=== PATIENT | male | born 1950 | race Caucasian/White ===

== ENCOUNTER 2020-01-08 00:21 | Inpatient (IN) ==
[2020-01-08] MEDS ORDERED: methylPREDNISolone SOD SUCC 125 MG/2 ML VIAL IV ONE (00:33)
[2020-01-08] MEDS ORDERED: ALBUTEROL SULFATE 5 MG/ML NEB SOLUTION BOTTLE NEB ONE (00:33)
[2020-01-08] MEDS ORDERED: cefTRIAXone 1 GM VIAL IV ONE (00:50)
[2020-01-08] MEDS ORDERED: AZITHROMYCIN 500 MG in DEXTROSE 5% IN WATER 250 ML IV ONE (00:50)
--- NOTE | 2020-01-08 00:54 | Emergency Department Note ---
SOB HPI General Chief Complaint: Shortness of Breath/Dyspnea Stated Complaint: shortness of breath Time Seen by Provider: 01/08/20 00:43 Source: patient Mode of arrival: ambulatory Limitations: no limitations History of Present Illness HPI Narrative: The patient presents with several hours of Dyspnea. He has a history of emphysema. He has had a slight increase in his cough since yesterday. He denies fever. He denies vomiting. He denies chest pain. The patient is normally on oxygen. He denies calf swelling. Related Data Home Medications Medication Instructions Recorded Confirmed cetirizine 10 mg tablet 10 mg PO QDAY tab 09/01/17 12/06/19 ibuprofen 200 mg tablet 400 mg PO TID tab 09/01/17 12/06/19 [id number]-[id number]-[id number] 1 tab PO QDAY 09/01/17 12/06/19 formoterol fumarate 20 mcg/2 mL 2 ml INHALATION Q12H 12/01/17 12/06/19 solution for nebulization albuterol sulfate 2 puff INH PRN PRN 08/23/18 12/06/19 cholecalciferol (vitamin D3) 400 unit PO DAILY 08/23/18 12/06/19 hydrocortisone 2.5 % topical cream 1 applic TOPICAL QDAY PRN g 08/30/18 12/06/19 budesonide 0.5 mg NEB Q12 09/27/18 12/06/19 epinephrine 0.15 mg IM PRN PRN 09/27/18 12/06/19 tiotropium bromide 2.5 2 puff INHALATION QDAY 11/25/19 12/06/19 mcg/actuation mist for inhalation Previous Rx's Medication Instructions Recorded albuterol sulfate 2.5 mg IH Q4-6HP PRN #30 ml 03/27/19 tamsulosin 0.4 mg capsule 0.4 mg PO QDAY #30 cap 06/20/19 hydrocodone 5 mg-acetaminophen 325 1 tab PO QHS PRN #30 tab 11/25/19 mg tablet tramadol 50 mg tablet 100 mg PO TID #180 tab 11/25/19 Allergies Allergy/AdvReac Type Severity Reaction Status Date / Time venom-honey bee Allergy Severe Anaphylaxis Verified 12/06/19 13:41 ipratropium [From Combivent] Allergy Unknown Bladder Verified 12/06/19 13:41 problem Megestrol Allergy Unknown Rash Verified 12/06/19 13:41 asparagus AdvReac Mild Hives Verified 12/06/19 13:41 cauliflower AdvReac Mild Hives Verified 12/06/19 13:41 oxymetazoline AdvReac Mild Shakiness Verified 12/06/19 13:41 [From Afrin (oxymetazoline)] sunshine AdvReac Severe Other Uncoded 12/06/19 13:41 cold AdvReac Intermediate Other Uncoded 12/06/19 13:41 broccoli AdvReac Mild Hives Uncoded 12/06/19 13:41 cabbage AdvReac Mild Hives Uncoded 12/06/19 13:41 heat AdvReac Mild Fainting Uncoded 12/06/19 13:41 Review of Systems ROS ROS Narrative: Narrative: All systems ED: reviewed and negative except as stated. [facility] Narrative Patient History Narrative: Narrative: Medical/Surgical/Family History All Active Problems (Updated 01/08/20 @ 02:32 by Ramana Guzman MD) Acute respiratory distress (Acute) Adverse reaction to drug (Acute) Pedal edema (Acute) Acute exacerbation of chronic obstructive airways disease (Acute) Adenocarcinoma of prostate (Acute) History of tobacco use (Chronic) Raynauds disease (Chronic ~1991) Chronic pain (Chronic ~1991) Emphysema of lung (Chronic ~2015) COPD (chronic obstructive pulmonary disease) (Chronic ~2015) Joint pain (Chronic ~1991) Muscle pain (Chronic ~1991) Medical History (Updated 01/08/20 @ 02:32 by Ramana Guzman MD) Chronic pain (Chronic ~1991) COPD (chronic obstructive pulmonary disease) (Chronic ~2015) Emphysema of lung (Chronic ~2015) History of tobacco use (Chronic) Joint pain (Chronic ~1991) Muscle pain (Chronic ~1991) Raynauds disease (Chronic ~1991) Surgical History H/O colonoscopy (Chronic) 2014 H/O neck surgery (Chronic) x3 H/O shoulder surgery (Chronic) x2 History of resection of rib (Chronic) History of surgery (Chronic) Hip bone used for neck surgery History of thoracic surgery (Chronic) Family History Brother Arthritis Prostate cancer Sister Arthritis Mother Arthritis Grandmother Arthritis Maternal Stroke Paternal Social History Smoking Status: Former smoker Alcohol Intake Frequency: 0-2 drinks per day Substance Use: does not use Exam Narrative Narrative: Narrative: General Limitations: no limitations General appearance: Present alert and in distress (Moderate respiratory); Absent in no apparent distress and obtunded Head Head: Present atraumatic and normal inspection Eye Eye: Present normal appearance Neck Neck: Present normal inspection, full ROM and trachea midline Chest Chest: Present normal inspection and symmetric chest wall rise Respiratory Respiratory: Present respiratory distress (Moderate), wheezes, accessory muscle use, prolonged expiratory phase and decreased breath sounds; Absent normal lung sounds bilaterally Cardiovascular Cardiovascular: Present normal rhythm and tachycardia Adbominal Abdominal: Present soft; Absent distention and tenderness Extremities Extremities: Present normal inspection and full ROM; Absent calf tenderness Back Back: Present full ROM Neurological Neurological: Present alert and oriented X3 Psychiatric Psychiatric: Present normal affect and anxious; Absent normal mood Skin Skin: Present warm (WNL) and dry Course Reevaluation(s) Reevaluation #1: The patient is doing markedly better. He seems to be in no respiratory distress at all now. Time: 02:31 Reevaluation #2: I spoke to the hospitalist, Dr. Escalante. He agreed to admit this patient and asked me to place holding orders Time: 02:40 Vital Signs Vital signs: Vital Signs Temperature 97.1 F 01/08/20 00:23 Pulse Rate 104 H 01/08/20 00:23 Respiratory Rate 24 H 01/08/20 00:23 Blood Pressure 183/92 01/08/20 00:23 Pulse Oximetry (%) 95 01/08/20 00:23 Temperature 97.1 F 01/08/20 00:23 Pulse Rate 129 H 01/08/20 01:50 Respiratory Rate 18 01/08/20 01:49 Blood Pressure 140/91 01/08/20 01:46 Pulse Oximetry (%) 97 01/08/20 01:50 [facility] MDM Narrative Medical decision making narrative: Narrative: The patient presents with dyspnea. This is most likely COPD exacerbation. Viral infection including coronavirus is considered. Community-acquired pneumonia is considered. I doubt pulmonary embolism as COPD exacerbation is a much more likely diagnosis and patient has no significant risk factors for PE. ACS is considered but thought to be less likely. We will obtain a troponin and EKG. Plan to place him on a BiPAP and do a continuous neb. We will give Solu-Medrol. We will obtain appropriate labs including lactate and cultures. Once blood cultures have been obtained, we will give Rocephin and Zithromax. I suspect patient will most likely need to be admitted to the hospital. Lab Data Lab results reviewed: Yes I reviewed the patient's lab results. Result diagrams: 01/08/20 00:48 01/08/20 00:48 Labs: Lab Results 01/08/20 01/08/20 01/08/20 Range/Units 00:48 00:48 00:48 WBC 7.7 (4.5-11.0) K/mcL RBC 3.81 L (4.50-5.90) M/mcL Hgb 11.8 L (13.5-16.5) g/dL Hct 34.8 L (41.0-55.0) % MCV 91.3 (80.0-100.0) fL MCH 31.0 (26.0-34.0) pg MCHC 33.9 (31.0-36.0) g/dL RDW 12.7 (11.5-14.5) % Plt Count 184 (140-440) K/mcL MPV 10.3 (7.4-10.4) fL Neut % (Auto) 50.4 (38.0-78.0) % Lymph % (Auto) 33.1 (15.0-49.0) % [place] % (Auto) 11.3 (1.0-12.0) % Eos % (Auto) 4.4 (0.0-7.0) % Baso % (Auto) 0.8 (0.0-2.0) % Lymph # (Auto) 2.55 (1.50-4.80) K/mcL [place] # (Auto) 0.87 (0.10-0.90) K/mcL Eos # (Auto) 0.34 (0.00-0.70) K/mcL Baso # (Auto) 0.06 (0.00-0.20) K/mcL Absolute Neutrophils 3.89 (1.80-8.00) K/mcL VBG Lactic Acid (0.5-2.0) mmol/L Sodium 135 (133-145) mmol/L Potassium 4.1 (3.3-5.1) mmol/L Chloride 99 (96-108) mmol/L Carbon Dioxide 26 (22-30) mmol/L Anion Gap 10.0 (8.0-16.0) BUN 16 (8-23) mg/dL Creatinine 1.1 (0.7-1.2) mg/dL GFR Calculation 68 Glucose 131 H (70-105) mg/dL Calcium 9.1 (8.6-10.4) mg/dL Total Bilirubin < 0.2 (0.1-1.0) mg/dL AST 25 (<40) U/L ALT 18 (<40) U/L Alkaline Phosphatase 74 (39-117) U/L Troponin T < 0.01 (<0.03) ng/mL Total Protein 6.8 (5.9-8.4) gm/dL Albumin 4.1 (3.2-5.2) gm/dL Globulin 2.7 (2.2-3.7) gm/dL Albumin/Globulin Ratio 1.5 (1.0-2.3) 01/08/20 Range/Units 00:48 WBC (4.5-11.0) K/mcL RBC (4.50-5.90) M/mcL Hgb (13.5-16.5) g/dL Hct (41.0-55.0) % MCV (80.0-100.0) fL MCH (26.0-34.0) pg MCHC (31.0-36.0) g/dL RDW (11.5-14.5) % Plt Count (140-440) K/mcL MPV (7.4-10.4) fL Neut % (Auto) (38.0-78.0) % Lymph % (Auto) (15.0-49.0) % [place] % (Auto) (1.0-12.0) % Eos % (Auto) (0.0-7.0) % Baso % (Auto) (0.0-2.0) % Lymph # (Auto) (1.50-4.80) K/mcL [place] # (Auto) (0.10-0.90) K/mcL Eos # (Auto) (0.00-0.70) K/mcL Baso # (Auto) (0.00-0.20) K/mcL Absolute Neutrophils (1.80-8.00) K/mcL VBG Lactic Acid 0.6 (0.5-2.0) mmol/L Sodium (133-145) mmol/L Potassium (3.3-5.1) mmol/L Chloride (96-108) mmol/L Carbon Dioxide (22-30) mmol/L Anion Gap (8.0-16.0) BUN (8-23) mg/dL Creatinine (0.7-1.2) mg/dL GFR Calculation Glucose (70-105) mg/dL Calcium (8.6-10.4) mg/dL Total Bilirubin (0.1-1.0) mg/dL AST (<40) U/L ALT (<40) U/L Alkaline Phosphatase (39-117) U/L Troponin T (<0.03) ng/mL Total Protein (5.9-8.4) gm/dL Albumin (3.2-5.2) gm/dL Globulin (2.2-3.7) gm/dL Albumin/Globulin Ratio (1.0-2.3) Radiology Data Radiology results reviewed: Yes I reviewed the patient's radiology results. Radiology results narrative: Per my interpretation of the portable chest x-ray, there is hyperexpansion of the lungs but no infiltrate appreciated EKG Data EKG #1: EKG attestation: Yes I reviewed and interpreted this EKG. and Yes There are no EKG findings of acute coronary syndrome EKG results narrative: Sinus, rate 126, normal axis, normal intervals, narrow complex QRS, no acute ST or T changes worrisome for acute infarction CC TIME Critical Care Time Critical Care Time: Yes Total Critical Care Time: 45 Discharge Plan Patient/Caregiver Discharge Instructions Pt seen by PUBLIC HEALTH INFORMATICIAN/PA only: No Clinical Impression: COPD (chronic obstructive pulmonary disease), Acute respiratory distress Patient Disposition: Xfer As Outpt/Obs ([facility]) Condition: Undetermined Follow up with: Amalia Bucio PA-C [Primary Care Provider] - Prescriptions: No Action tamsulosin 0.4 mg capsule 0.4 mg PO QDAY Qty: 30 RF: 6 ibuprofen 200 mg tablet 400 mg PO TID RF: 0 lijwhvjsflsm-jefdlspq-acmcnt 1 tab PO QDAY RF: 0 cetirizine [Zyrtec] 10 mg tablet 10 mg PO QDAY RF: 0 formoterol fumarate [Perforomist] 20 mcg/2 mL solution for nebulization 2 ml INHALATION Q12H RF: 0 hydrocortisone 2.5 % cream 1 applic TOPICAL QDAY PRN (Reason: eczema) RF: 0 Spiriva Respimat 2.5 mcg/actuation mist 2 puff INHALATION QDAY RF: 0 hydrocodone-acetaminophen 5-325 mg tablet 1 tab PO QHS PRN (Reason: pain) Qty: 30 RF: 0 tramadol 50 mg tablet 100 mg PO TID Qty: 180 RF: 0 albuterol sulfate 1 PUFF inhaler 2 puff INH PRN PRN (Reason: asthma) RF: 0 cholecalciferol (vitamin D3) 4,000 UNIT capsule 400 unit PO DAILY RF: 0 epinephrine 0.15 MG/0.3 ML auto-injector 0.15 mg IM PRN PRN (Reason: Anaphylaxis) RF: 0 budesonide 0.5 MG/2 ML suspension for nebulization 0.5 mg NEB Q12 RF: 0 albuterol sulfate 2.5 MG/3 ML solution for nebulization 2.5 mg IH Q4-6HP PRN (Reason: Wheezing) Qty: 30 RF: 0
[2020-01-08 01:40] LABS: Basophils # (Auto) 0.06 K/mcL (0.00-0.20); Basophils % (Auto) 0.8 % (0.0-2.0); Eosinophils # (Auto) 0.34 K/mcL (0.00-0.70); Eosinophils % (Auto) 4.4 % (0.0-7.0); Hematocrit 34.8 % (41.0-55.0); Hemoglobin 11.8 g/dL (13.5-16.5); Lymphocytes # (Auto) 2.55 K/mcL (1.50-4.80); Lymphocytes % (Auto) 33.1 % (15.0-49.0); Mean Cell Volume 91.3 fL (80.0-100.0); Mean Corpuscular HGB Conc 33.9 g/dL (31.0-36.0); Mean Platelet Volume 10.3 fL (7.4-10.4); Monocytes # (Auto) 0.87 K/mcL (0.10-0.90); Monocytes % (Auto) 11.3 % (1.0-12.0); Neutrophils % (Auto) 50.4 % (38.0-78.0); Platelet Count 184 K/mcL (140-440); RBC 3.81 M/mcL (4.50-5.90); Red Cell Distribution Width 12.7 % (11.5-14.5); WBC 7.7 K/mcL (4.5-11.0)
[2020-01-08 02:05] LABS: ALT/SGPT 18 U/L (<40); AST/SGOT 25 U/L (<40); Albumin 4.1 gm/dL (3.2-5.2); Albumin/Globulin Ratio 1.5 (1.0-2.3); Alkaline Phosphatase 74 U/L (39-117); Bilirubin,Total < 0.2 mg/dL (0.1-1.0); Blood Urea Nitrogen 16 mg/dL (8-23); Calcium 9.1 mg/dL (8.6-10.4); Carbon Dioxide 26 mmol/L (22-30); Chloride 99 mmol/L (96-108); Globulin 2.7 gm/dL (2.2-3.7); Glomerular Filtration Rate 68; Glucose 131 mg/dL (70-105)
[2020-01-08] MEDS: 0.9 % SODIUM CHLORIDE 1,000 ML IV SCH ×2 (05:19→18:11)
--- NOTE | 2020-01-08 08:06 | XRay Report ---
CLINICAL INFORMATION: SOB COMPARISON: 03/27/2019 FINDINGS: Heart size, mediastinum and pulmonary vessels are normal. COPD changes are stable. No infiltrates or new pulmonary abnormalities. No effusions. IMPRESSION: COPD. no acute disease Interpreted and Authenticated by: Rick Amin 01/08/20
[2020-01-08] MEDS: traMADol 50 MG TABLET PO PRN ×2 (08:12→12:53)
[2020-01-08] MEDS ORDERED: MAGNESIUM SULFATE 2 GM/50 ML BAG IV PRN (08:45)
[2020-01-08] MEDS ORDERED: MELATONIN 3 MG TABLET PO PRN (08:45)
[2020-01-08] MEDS ORDERED: POTASSIUM CHLORIDE 40 MEQ in DEXTROSE 5% IN WATER 500 ML IV PRN (08:45)
[2020-01-08] MEDS ORDERED: ONDANSETRON 4 MG ODT TABLET SL PRN (08:45)
[2020-01-08] MEDS ORDERED: ONDANSETRON 4 MG/2 ML VIAL IV PRN (08:45)
[2020-01-08] MEDS ORDERED: ACETAMINOPHEN 325 MG TABLET PO PRN (08:45)
[2020-01-08] MEDS ORDERED: POLYETHYLENE GLYCOL 3350 17 GM PACKET PO PRN (08:45)
[2020-01-08] MEDS ORDERED: ACETAMINOPHEN 650 MG/65 ML BOTTLE IV PRN (08:45)
[2020-01-08] MEDS ORDERED: BISACODYL 10 MG SUPP.RECT PR PRN (08:45)
[2020-01-08] MEDS ORDERED: HYDROCORTISONE CRM 2.5% TUBE 30GM TOPICAL PRN (08:49)
--- NOTE | 2020-01-08 08:55 | Internal Med History&Physical ---
HPI History of Present Illness Patient information: Note initiated : 01/08/20 at 8:55 am Service Date, if different from initiated Date: [] Patient: Dimitry May a 69 y/o M admitted on 01/08/20 for shortness of breath. Chief Complaint: Shortness of breath and unable to talk History of present illness: Mr. May is a 69 year old M with a known history of COPD/DJD who presents to the ER following rapid deterioration in his respiratory status with increasing shortness of breath weakness that started late evening. Symptoms progressed to the point that he was unable to catch breath even at rest. He eventually presents to the ER. Initial work-up was consistent with hypercapnic respiratory failure with ABG pH 7.3 and increased work of breathing unable to talk. Patient was probably started on noninvasive ventilation along with bronchodilators and IV steroids. Subsequently hospital service was consulted At the time of my evaluation patient is fairly anxious, dyspneic and sitting up in bed. He denies recent fever. Lives with his . Denies yellow productive sputum but endorses to increasing dyspnea/cough/orthopnea. Denies rash/headache/diarrhea or dysuria Denies exposure to smoke/sick contacts Review of systems 10 point review system was performed and is negative except for ones discussed above PFSH PFSH All Active Problems (Updated 01/08/20 @ 02:32 by Ramana Guzman MD) Acute respiratory distress (Acute) Adverse reaction to drug (Acute) Pedal edema (Acute) Acute exacerbation of chronic obstructive airways disease (Acute) Adenocarcinoma of prostate (Acute) History of tobacco use (Chronic) Raynauds disease (Chronic ~1991) Chronic pain (Chronic ~1991) Emphysema of lung (Chronic ~2015) COPD (chronic obstructive pulmonary disease) (Chronic ~2015) Joint pain (Chronic ~1991) Muscle pain (Chronic ~1991) Medical History (Updated 01/08/20 @ 02:32 by Ramana Guzman MD) Chronic pain (Chronic ~1991) COPD (chronic obstructive pulmonary disease) (Chronic ~2015) Emphysema of lung (Chronic ~2015) History of tobacco use (Chronic) Joint pain (Chronic ~1991) Muscle pain (Chronic ~1991) Raynauds disease (Chronic ~1991) Surgical History H/O colonoscopy (Chronic) 2014 H/O neck surgery (Chronic) x3 H/O shoulder surgery (Chronic) x2 History of resection of rib (Chronic) History of surgery (Chronic) Hip bone used for neck surgery History of thoracic surgery (Chronic) Family History Brother Arthritis Prostate cancer Sister Arthritis Mother Arthritis Grandmother Arthritis Maternal Stroke Paternal Social History marital status: occupational status: disabled smoking status: Former smoker alcohol intake frequency: 0-2 drinks per day substance use type: does not use MEDS/ALLERGIES Home Medications and Allergies Home Medications Medication Instructions Recorded Confirmed Type cetirizine 10 mg tablet 10 mg PO QDAY tab 09/01/17 01/08/20 History ibuprofen 200 mg tablet 400 mg PO TID tab 09/01/17 01/08/20 History lpzichluziqh-heqzzqgn-ezxfcg 1 tab PO QDAY 09/01/17 01/08/20 History formoterol fumarate 20 mcg/2 mL 2 ml INHALATION Q12H 12/01/17 01/08/20 History solution for nebulization albuterol sulfate 2 puff INH PRN PRN 08/23/18 01/08/20 History cholecalciferol (vitamin D3) 400 unit PO DAILY 08/23/18 01/08/20 History hydrocortisone 2.5 % topical cream 1 applic TOPICAL QDAY PRN g 08/30/18 01/08/20 History budesonide 0.5 mg NEB Q12 09/27/18 01/08/20 History epinephrine 0.15 mg IM PRN PRN 09/27/18 01/08/20 History albuterol sulfate 2.5 mg IH Q4-6HP PRN #30 ml 03/27/19 01/08/20 Rx tamsulosin 0.4 mg capsule 0.4 mg PO QDAY #30 cap 06/20/19 01/08/20 Rx hydrocodone 5 mg-acetaminophen 325 1 tab PO QHS PRN #30 tab 11/25/19 01/08/20 Rx mg tablet tiotropium bromide 2.5 2 puff INHALATION QDAY 11/25/19 01/08/20 History mcg/actuation mist for inhalation tramadol 50 mg tablet 100 mg PO TID #180 tab 11/25/19 01/08/20 Rx guaifenesin [Mucinex] 600 mg PO BID 01/08/20 01/08/20 History melatonin 3 mg PO HS PRN 01/08/20 01/08/20 History Allergies Allergy/AdvReac Type Severity Reaction Status Date / Time venom-honey bee Allergy Severe Anaphylaxis Verified 12/06/19 13:41 Megestrol Allergy Mild Rash Verified 01/08/20 07:36 asparagus AdvReac Mild Hives Verified 12/06/19 13:41 cauliflower AdvReac Mild Hives Verified 12/06/19 13:41 ipratropium [From Combivent] AdvReac Mild Bladder Verified 01/08/20 07:36 problem oxymetazoline AdvReac Mild Shakiness Verified 12/06/19 13:41 [From Afrin (oxymetazoline)] broccoli AdvReac Mild Hives Uncoded 12/06/19 13:41 cabbage AdvReac Mild Hives Uncoded 12/06/19 13:41 EXAM Constitutional Vitals: Temp Pulse Resp BP Pulse Ox 98.0 F 110 H 18 155/85 97 01/08/20 08:17 01/08/20 08:17 01/08/20 05:27 01/08/20 08:17 01/08/20 08:17 Extremely anxious/labored tripoding Head normocephalic Oral cavity moist No ear nose discharge Eye movement symmetrical Neck supple no lymphadenopathy S1-S2 tachycardia Labored rapid shallow breathing Nondistended nontender abdomen Lower extremity no cyanosis clubbing or joint swelling Skin no suspicious lesion Psych anxious but alert cooperative Neuro normal higher function DATA Data Completed and Pending Labs: Labs from last 24 hours 01/08/20 01/08/20 01/08/20 03:43 01:07 00:48 WBC RBC Hgb Hct MCV MCH MCHC RDW Plt Count MPV Neut % (Auto) Lymph % (Auto) [place] % (Auto) Eos % (Auto) Baso % (Auto) Lymph # (Auto) [place] # (Auto) Eos # (Auto) Baso # (Auto) Absolute Neutrophils VBG Lactic Acid 0.6 Sodium Potassium Chloride Carbon Dioxide Anion Gap BUN Creatinine GFR Calculation Glucose Calcium Total Bilirubin AST ALT Alkaline Phosphatase Troponin T Total Protein Albumin Globulin Albumin/Globulin Ratio SARS-CoV-2 (PCR) Negative Pending 01/08/20 01/08/2020 00:48 00:48 00:48 WBC 7.7 RBC 3.81 L Hgb 11.8 L Hct 34.8 L MCV 91.3 MCH 31.0 MCHC 33.9 RDW 12.7 Plt Count 184 MPV 10.3 Neut % (Auto) 50.4 Lymph % (Auto) 33.1 [place] % (Auto) 11.3 Eos % (Auto) 4.4 Baso % (Auto) 0.8 Lymph # (Auto) 2.55 [place] # (Auto) 0.87 Eos # (Auto) 0.34 Baso # (Auto) 0.06 Absolute Neutrophils 3.89 VBG Lactic Acid Sodium 135 Potassium 4.1 Chloride 99 Carbon Dioxide 26 Anion Gap 10.0 BUN 16 Creatinine 1.1 GFR Calculation 68 Glucose 131 H Calcium 9.1 Total Bilirubin < 0.2 AST 25 ALT 18 Alkaline Phosphatase 74 Troponin T < 0.01 Total Protein 6.8 Albumin 4.1 Globulin 2.7 Albumin/Globulin Ratio 1.5 SARS-CoV-2 (PCR) A/P Narrative A/P Narrative: * Acute hypercapnic respiratory failure secondary COPD exacerbation. Start noninvasive ventilation, serial blood gas and BiPAP titration * Acute exacerbation of COPD-start antibiotic/bronchodilators/steroids/pulmonary toilet * History of degenerative joint disease continue pain medication occluding hydrocodone/IbuProfen * History of BPH continue tamsulosin * Prophylaxis Heparin Plan * Inpatient ICU admission * Noninvasive mechanical ventilation * Serial blood gas/chest imaging * Bronchodilators/IV steroids/pulmonary toilet/oxygen support * PT OT nutrition support * Discharge planning Time spent history physical in excess of 75 minutes. Additional 35 minutes critical care time spent on management of hypercapnic respiratory failure/blood gas/imaging interpretation and noninvasive mechanical ventilation management Time Spent With Patient Time: Total time spent is greater than 50% in coordination of care (as documented) at patient's floor/unit and/or counseling patient: QUALITY Stroke Symptom Onset Unknown: No VTE Deep Vein Thrombosis/Pulmonary Embolism Present on Admission: No
[2020-01-08] MEDS ORDERED: MULTIVITAMIN MINERALS LUTEIN PO SCH (09:00)
[2020-01-08] MEDS ORDERED: LEVOFLOXACIN 750 MG/150 ML BAG IV SCH (09:00)
[2020-01-08] MEDS: HEPARIN 5,000 UNIT/ML VIAL SQ SCH ×2 (09:46→20:04)
[2020-01-08] MEDS: DOCUSATE SODIUM 100 MG CAPSULE PO SCH ×2 (09:46→20:00)
[2020-01-08] MEDS: MULTIVIT,THER IRON,CA,FA & MIN 1 TABLET PO SCH (09:46)
[2020-01-08] MEDS: TAMSULOSIN 0.4 MG CAPSULE PO SCH (09:46)
[2020-01-08] MEDS: CETIRIZINE 10 MG TABLET PO SCH (09:46)
[2020-01-08] MEDS: IBUPROFEN 200 MG TABLET PO PRN ×2 (10:09→15:55)
[2020-01-08] MEDS: IPRATROPIUM/ALBUTEROL 3 ML AMPUL.NEB NEB SCH ×4 (10:37→23:07)
[2020-01-08] MEDS: BUDESONIDE 0.5 MG/2 ML AMPUL.NEB NEB SCH ×2 (10:37→19:19)
[2020-01-08] MEDS: methylPREDNISolone SOD SUCC 125 MG/2 ML VIAL IV SCH ×2 (14:35→22:39)
[2020-01-08] MEDS: 0.9 % SODIUM CHLORIDE 10 ML SYRINGE IV SCH ×2 (14:50→22:41)
[2020-01-08] MEDS: SENNOSIDES/DOCUSATE SODIUM 1 TAB TABLET PO SCH (20:00)
[2020-01-08] MEDS: HYDROcodone/APAP 5/325MG TABLET PO PRN (20:03)
[2020-01-09] MEDS: 0.9 % SODIUM CHLORIDE 1,000 ML IV SCH ×4 (01:21→17:20)
[2020-01-09] MEDS: IPRATROPIUM/ALBUTEROL 3 ML AMPUL.NEB NEB SCH ×6 (04:16→23:01)
[2020-01-09] MEDS: traMADol 50 MG TABLET PO PRN ×3 (04:30→20:41)
[2020-01-09] MEDS: IBUPROFEN 200 MG TABLET PO PRN ×2 (05:03→14:21)
[2020-01-09] MEDS: methylPREDNISolone SOD SUCC 125 MG/2 ML VIAL IV SCH ×3 (05:37→22:08)
[2020-01-09] MEDS: 0.9 % SODIUM CHLORIDE 10 ML SYRINGE IV SCH ×3 (05:38→20:42)
[2020-01-09 06:33] LABS: ALT/SGPT 19 U/L (<40); AST/SGOT 42 U/L (<40); Albumin 3.5 gm/dL (3.2-5.2); Albumin/Globulin Ratio 1.2 (1.0-2.3); Alkaline Phosphatase 68 U/L (39-117); Bilirubin,Direct < 0.2 mg/dL (<0.3); Bilirubin,Total 0.3 mg/dL (0.1-1.0); Blood Urea Nitrogen 11 mg/dL (8-23); Calcium 8.8 mg/dL (8.6-10.4); Carbon Dioxide 20 mmol/L (22-30); Chloride 96 mmol/L (96-108); Globulin 2.9 gm/dL (2.2-3.7); Glomerular Filtration Rate 91; Glucose 142 mg/dL (70-105); Lactate Dehydrogenase 271 U/L (135-225); Phosphorous 2.5 mg/dL (2.5-4.5); Triglycerides 33 mg/dL (<150); Uric Acid 2.4 mg/dL (2.5-8.0)
[2020-01-09] MEDS: BUDESONIDE 0.5 MG/2 ML AMPUL.NEB NEB SCH ×2 (07:20→19:09)
[2020-01-09 08:04] LABS: Basophils # (Auto) 0 K/mcL (0.00-0.20); Basophils % (Auto) 0 % (0.0-2.0); Eosinophils # (Auto) 0.17 K/mcL (0.00-0.70); Eosinophils % (Auto) 1.9 % (0.0-7.0); Hematocrit 32.5 % (41.0-55.0); Hemoglobin 11.2 g/dL (13.5-16.5); Lymphocytes # (Auto) 0.67 K/mcL (1.50-4.80); Lymphocytes % (Auto) 7.7 % (15.0-49.0); Mean Cell Volume 90.3 fL (80.0-100.0); Mean Corpuscular HGB Conc 34.5 g/dL (31.0-36.0); Mean Platelet Volume 10.1 fL (7.4-10.4); Monocytes % (Auto) 3.4 % (1.0-12.0); Platelet Count 172 K/mcL (140-440); Red Cell Distribution Width 12.4 % (11.5-14.5); WBC 8.7 K/mcL (4.5-11.0)
[2020-01-09] MEDS: HEPARIN 5,000 UNIT/ML VIAL SQ SCH ×2 (09:46→20:40)
[2020-01-09] MEDS: CETIRIZINE 10 MG TABLET PO SCH (09:46)
[2020-01-09] MEDS: DOCUSATE SODIUM 100 MG CAPSULE PO SCH ×2 (09:46→20:33)
[2020-01-09] MEDS: MULTIVIT,THER IRON,CA,FA & MIN 1 TABLET PO SCH (09:46)
[2020-01-09] MEDS: TAMSULOSIN 0.4 MG CAPSULE PO SCH (09:46)
[2020-01-09] MEDS ORDERED: VERAPAMIL 5 MG/2 ML VIAL IV ONE (12:26)
--- NOTE | 2020-01-09 12:26 | Internal Med Progress Note ---
SUBJECTIVE Subjective Patient information: Note initiated : 01/09/20 at 12:22 pm Service Date, if different from initiated Date: [] Patient: Dimitry May a 69 y/o M admitted on 01/08/20 for shortness of breath. Chief Complaint: [] Interval history: History of present illness: Mr. May is a 69 year old M with a known history of COPD/DJD who presents to the ER following rapid deterioration in his respiratory status with increasing shortness of breath weakness that started late evening. Symptoms progressed to the point that he was unable to catch breath even at rest. He eventually presents to the ER. Initial work-up was consistent with hypercapnic respiratory failure with ABG pH 7.3 and increased work of breathing unable to talk. Patient was probably started on noninvasive ventilation along with bronchodilators and IV steroids. [facility] hospital service was consulted At the time of my evaluation patient is fairly anxious, dyspneic and sitting up in bed. He denies recent fever. Lives with his . Denies yellow productive sputum but endorses to increasing dyspnea/cough/orthopnea. Denies rash/headache/diarrhea or dysuria Denies exposure to smoke/sick contacts 01/08-patient clinically improved now on 1 L oxygen. Off noninvasive ventilation. However persistent a flutter/MAT with rate over 140. Start verapamil. Continue steroids/bronchodilators. Continue additional support. Await COVID-19 testing. Maintain precautions Constitutional Vitals: Vital Signs Temp Pulse Resp BP Pulse Ox 99.5 F H 108 H 16 139/84 96 01/09/20 08:01 01/09/20 11:20 01/09/20 11:20 01/09/20 10:02 01/09/20 11:10 Period Temp Pulse Resp BP Sys/Carlos Pulse Ox Last 24 Hr 97.4 F-99.5 F 92-113 - 101-150/58-107 94-99 Intake and Output 01/08/20 01/09/20 01/09/20 21:59 05:59 13:59 Intake Total 1540 1400 800 Output Total 850 1600 800 Balance 690 -200 0 Weight 48.444 kg Alert Anxious and labored Tachycardia on telemetry No lymphedema Intake & Output: Intake & Output 01/08/20 01/09/20 01/09/20 21:59 05:59 13:59 Intake Total 1540 1400 800 Output Total 850 1600 800 Balance 690 -200 0 Weight 48.444 kg Intake: IV 1000 1000 Sodium Chloride 0.9% 1,000 ml @ 1000 1000 100 mls/hr IV .Q10H [facility] Rx#: [id number] Oral 540 400 800 Output: Urine Catheter Amount 1600 800 Void Amount 850 Other: Meal Breakfast Percent of Meal Consumed 25% Feeding Ability Independent Urine Appearance Clear Clear Clear Uretheral (Rendon) Clear Clear Urine Color Pale Pale Pale Uretheral (Rendon) Pale Bright Yellow Urine Odor Normal OBJ DATA Labs CBC & Chem 7: 01/09/20 05:06 01/09/20 05:06 Labs: Abnormal Lab Results 01/09/20 01/09/20 01/08/20 05:06 05:06 00:48 RBC 3.60 L Hgb 11.2 L Hct 32.5 L Neut % (Auto) 87.0 H Lymph % (Auto) 7.7 L Lymph # (Auto) 0.67 L Sodium 127 L Carbon Dioxide 20 L Glucose 142 H 131 H Uric Acid 2.4 L AST 42 H Lactate Dehydrogenase 271 H 01/08/20 00:48 RBC 3.81 L Hgb 11.8 L Hct 34.8 L Neut % (Auto) Lymph % (Auto) Lymph # (Auto) Sodium Carbon Dioxide Glucose Uric Acid AST Lactate Dehydrogenase Meds: Medications Acetaminophen (Tylenol) 650 mg PO Q4-6HP PRN; Protocol PRN Reason: Per Pain Protocol/Fever > 101 Hydrocodone Bitart/Acetaminophen (Gary 5/325mg) 1 tab PO QHS PRN; Protocol PRN Reason: pain Last Admin: 01/08/20 20:03 Dose: 1 tab Documented by: Albuterol/Ipratropium (Duoneb) 3 ml NEB Q4HRT [facility] Last Admin: 01/09/20 11:09 Dose: 3 ml Documented by: Bisacodyl (Dulcolax) 10 mg [place] Q2-3DAYS PRN PRN Reason: Constipation Budesonide (Pulmicort) 0.5 mg NEB Q12 [facility] Last Admin: 01/09/20 07:20 Dose: 0.5 mg Documented by: Cetirizine HCl (Zyrtec) 10 mg PO QDAY [facility] Last Admin: 01/09/20 09:46 Dose: 10 mg Documented by: Docusate Sodium (Colace) 100 mg PO BID [facility] Last Admin: 01/09/20 09:46 Dose: Not Given Documented by: Heparin Sodium (Porcine) (Heparin) 5,000 unit SQ Q12 [facility] Last Admin: 01/09/20 09:46 Dose: 5,000 unit Documented by: Hydrocortisone (Hc Crm 2.5%) 1 dose TOPICAL DAILYP PRN PRN Reason: eczema Sodium Chloride (Sodium Chloride 0.9%) 1,000 mls @ 100 mls/hr IV .Q10H [facility] Last Admin: 01/09/20 04:17 Dose: 100 mls/hr Documented by: Potassium Chloride 40 meq/ (Dextrose) 520 mls @ 130 mls/hr IV UD PRN PRN Reason: K+ = or < 3.5 Acetaminophen (Ofirmev) 650 mg in 65 mls @ 130 mls/hr IV Q6HP PRN; Protocol PRN Reason: Per Pain Protocol/Fever > 101 Magnesium Sulfate (Magnesium Sulfate) 2 gm in 50 mls @ 50 mls/hr IV UD PRN PRN Reason: MG = or < 1.7 Levofloxacin (Levaquin) 750 mg in 150 mls @ 100 mls/hr IV Q48H [facility]; Protocol Last Infusion: 01/08/20 11:20 Dose: Infused Documented by: Ibuprofen (Motrin) 400 mg PO TIDP PRN; Protocol PRN Reason: pain Last Admin: 01/09/20 05:03 Dose: 400 mg Documented by: Iron Carb/Multivit/Hogshead Weigher/Folic Acid (Multivitamin W/Minerals) 1 tab PO DAILY [facility] Last Admin: 01/09/20 09:46 Dose: 1 tab Documented by: Melatonin (Melatonin 3mg Tablet) 3 mg PO HSP PRN PRN Reason: Insomnia Methylprednisolone Sodium Succinate (Solu-Medrol) 62.5 mg IV Q8 [facility] Last Admin: 01/09/20 05:37 Dose: 62.5 mg Documented by: Ondansetron HCl (Zofran Odt) 4 mg SL Q4-6HP PRN; Protocol PRN Reason: Nausea And Vomiting Ondansetron HCl (Zofran) 4 mg IV Q4-6HP PRN; Protocol PRN Reason: Nausea And Vomiting Tiotropium [place] [ Spiriva Respimat] Inhaler 2 dose INH QDAY [facility] Last Admin: 01/09/20 10:36 Dose: 2 dose Documented by: Polyethylene Glycol (Miralax) 17 gm PO DAILYP PRN PRN Reason: Constipation Senna/Docusate Sodium (Senna Plus Tablet) 1 tab PO HS [facility] Last Admin: 01/08/20 20:00 Dose: Not Given Documented by: Sodium Chloride (Saline Flush) 10 ml IV Q8 [facility] Last Admin: 01/09/20 05:38 Dose: Not Given Documented by: Tamsulosin HCl (Flomax) 0.4 mg PO QDAY [facility] Last Admin: 01/09/20 09:46 Dose: 0.4 mg Documented by: Tramadol HCl (Ultram) 100 mg PO TID PRN; Protocol PRN Reason: Pain Last Admin: 01/09/20 04:30 Dose: 100 mg Documented by: A/P Narrative A/P Narrative: * Acute hypercapnic respiratory failure secondary COPD exacerbation. Clinically improved on NIV. Currently off noninvasive ventilation. On monitor oxygen * Acute exacerbation of COPD-clinical improvement noted on steroids/bronchodilators and pulmonary toilet. Continue antibiotic/supportive treatment * A flutter/MAT with RVR, initiate verapamil for rate control. * History of degenerative joint disease continue pain medication occluding hy drocodone/IbuProfen * History of BPH continue tamsulosin * Prophylaxis Heparin Plan * Wean oxygen to sats 88% * Wean noninvasive ventilation * Initiate verapamil for rate control * Pre-existing medical condition management home meds * Continue bronchodilators/IV steroids/pulmonary toilet * PT OT nutrition support * Discharge planning Time spent history physical in excess of 75 minutes. Additional 35 minutes critical care time spent on management of hypercapnic respiratory failure/blood gas/imaging interpretation and noninvasive mechanical ventilation management Time Spent With Patient Time: Total time spent is greater than 50% in coordination of care (as documented) at patient's floor/unit and/or counseling patient: QUALITY Stroke Symptom Onset Unknown: No VTE Deep Vein Thrombosis/Pulmonary Embolism Present on Admission: No
[2020-01-09] MEDS: SENNOSIDES/DOCUSATE SODIUM 1 TAB TABLET PO SCH (20:33)
[2020-01-09] MEDS: HYDROcodone/APAP 5/325MG TABLET PO PRN (20:41)
[2020-01-09] MEDS: VERAPAMIL HCL 80 MG TABLET PO SCH (20:41)
[2020-01-10] MEDS: 0.9 % SODIUM CHLORIDE 1,000 ML IV SCH ×2 (00:07→04:53)
[2020-01-10] MEDS: IPRATROPIUM/ALBUTEROL 3 ML AMPUL.NEB NEB SCH ×3 (03:17→11:14)
[2020-01-10] MEDS: 0.9 % SODIUM CHLORIDE 10 ML SYRINGE IV SCH (04:53)
[2020-01-10] MEDS: IBUPROFEN 200 MG TABLET PO PRN (04:53)
[2020-01-10] MEDS: methylPREDNISolone SOD SUCC 125 MG/2 ML VIAL IV SCH (05:19)
[2020-01-10 07:08] LABS: Basophils # (Auto) 0 K/mcL (0.00-0.20); Basophils % (Auto) 0 % (0.0-2.0); Eosinophils # (Auto) 0 K/mcL (0.00-0.70); Eosinophils % (Auto) 0 % (0.0-7.0); Hematocrit 34.8 % (41.0-55.0); Hemoglobin 11.9 g/dL (13.5-16.5); Lymphocytes # (Auto) 0.48 K/mcL (1.50-4.80); Lymphocytes % (Auto) 3.8 % (15.0-49.0); Mean Cell Volume 89.5 fL (80.0-100.0); Mean Corpuscular HGB Conc 34.2 g/dL (31.0-36.0); Neutrophils % (Auto) 92.2 % (38.0-78.0); Platelet Count 211 K/mcL (140-440); RBC 3.89 M/mcL (4.50-5.90); WBC 12.6 K/mcL (4.5-11.0)
[2020-01-10] MEDS: BUDESONIDE 0.5 MG/2 ML AMPUL.NEB NEB SCH (07:09)
[2020-01-10] MEDS: DOCUSATE SODIUM 100 MG CAPSULE PO SCH (08:01)
[2020-01-10] MEDS: traMADol 50 MG TABLET PO PRN (08:07)
[2020-01-10] MEDS: HEPARIN 5,000 UNIT/ML VIAL SQ SCH (08:07)
[2020-01-10] MEDS: CETIRIZINE 10 MG TABLET PO SCH (08:07)
[2020-01-10] MEDS: MULTIVIT,THER IRON,CA,FA & MIN 1 TABLET PO SCH (08:08)
[2020-01-10] MEDS: TAMSULOSIN 0.4 MG CAPSULE PO SCH (08:08)
[2020-01-10 08:11] LABS: ALT/SGPT 22 U/L (<40); AST/SGOT 40 U/L (<40); Albumin 3.8 gm/dL (3.2-5.2); Albumin/Globulin Ratio 1.6 (1.0-2.3); Alkaline Phosphatase 60 U/L (39-117); Bilirubin,Direct < 0.2 mg/dL (<0.3); Bilirubin,Total 0.2 mg/dL (0.1-1.0); Blood Urea Nitrogen 13 mg/dL (8-23); Calcium 8.8 mg/dL (8.6-10.4); Carbon Dioxide 23 mmol/L (22-30); Chloride 100 mmol/L (96-108); Globulin 2.4 gm/dL (2.2-3.7); Glomerular Filtration Rate 96; Glucose 136 mg/dL (70-105); Lactate Dehydrogenase 252 U/L (135-225); Phosphorous 2.3 mg/dL (2.5-4.5); Triglycerides 41 mg/dL (<150); Uric Acid 2.1 mg/dL (2.5-8.0)
[2020-01-10] MEDS: VERAPAMIL HCL 80 MG TABLET PO SCH (08:13)
[2020-01-10] MEDS ORDERED: LEVOFLOXACIN 750 MG/150 ML BAG IV SCH (09:00)
--- NOTE | 2020-01-10 10:04 | XRay Report ---
HISTORY: COPD with shortness of breath FINDINGS: The lungs are hyperinflated with flattened diaphragms due to emphysema. There is a calcified granuloma overlying the right hilum. There is no evidence of pneumonia or pulmonary mass. The heart size is normal. Comparison with the prior exam from 01/08/20 shows no change. IMPRESSION: Stable emphysema and no evidence of pneumonia or congestive heart failure Interpreted and Authenticated by: Kenney Carrasquillo 01/10/20
--- NOTE | 2020-01-10 11:16 | Discharge Summary ---
Discharge Provider Provider Patient information: Note initiated : 01/10/20 at 11:14 am Service Date, if different from initiated Date: [] Patient: Dimitry May a 69 y/o M admitted on 01/08/20 for shortness of breath. Discharge diagnosis * Acute hypercapnic respiratory failure secondary COPD exacerbation. Clinically improved on NIV. CO2/BS normalized. Off noninvasive ventilation. Currently on 1 L oxygen * Acute exacerbation of COPD-clinical improvement noted on steroids /bronchodilators and pulmonary toilet. Continue antibiotic//oral steroid as outpatient * A flutter/MAT with RVR, continue verapamil for rate control. Initiate aspirin for CVA prophylaxis * History of degenerative joint disease continue pain medication occluding hydrocodone/IbuProfen * History of BPH continue tamsulosin Brief hospital course Mr. May is a 69 year old M with a known history of COPD/DJD who presents to the ER following rapid deterioration in his respiratory status with increasing shortness of breath weakness that started late evening. Symptoms progressed to the point that he was unable to catch breath even at rest. He eventually presents to the ER. Initial work-up was consistent with hypercapnic respiratory failure with ABG pH 7.3 and increased work of breathing unable to talk. Patient was probably started on noninvasive ventilation along with bronchodilators and IV steroids. Subsequently hospital service was consulted At the time of my evaluation patient is fairly anxious, dyspneic and sitting up in bed. He denies recent fever. Lives with his . Denies yellow productive sputum but endorses to increasing dyspnea/cough/orthopnea. Denies rash/headache/diarrhea or dysuria Denies exposure to smoke/sick contacts 01/08-patient clinically improved now on 1 L oxygen. Off noninvasive ventilation. However persistent a flutter/MAT with rate over 140. Start verapamil. Continue steroids/bronchodilators. Continue additional support. Await COVID-19 testing. Maintain precautions 01/09-patient doing remarkably well. Requesting discharge as he feels near baseline. Currently on 2 L oxygen. Improved work of breathing. Continue bronchodilators/oral steroids patient 5 days. Continue antibiotic coverage. Follow-up PCP. Detailed discharge directions as below. Rate controlled on verapamil. Date of admission: 01/08/20 04:56 Discharge date: 01/10/20 Primary care physician: Amalia Solis-JOSHUA Burrows Consults: 01/08/20 Consult to Physician [CONS] Stat Comment: Consulting Provider: Mak Escalante Reason For Exam: Physician to Consult Discharge Meds Discharge Medications Home Medications cetirizine 10 mg tablet 10 mg PO QDAY tab 09/01/17 [History Confirmed 01/08/20 Last Taken 09/26/18] ibuprofen 200 mg tablet 400 mg PO TID tab 09/01/17 [History Confirmed 01/08/20 Last Taken 09/26/18] ejpzssmmiqys-[id number]-[id number] 1 tab PO QDAY 09/01/17 [History Confirmed 01/08/20 Last Taken 09/10/18] formoterol fumarate 20 mcg/2 mL solution for nebulization 2 ml INHALATION Q12H 12/01/17 [History Confirmed 01/08/20 Last Taken 09/26/18] albuterol sulfate 2 puff INH PRN PRN 08/23/18 [History Confirmed 01/08/20 Last Taken 09/26/18] cholecalciferol (vitamin D3) 400 unit PO DAILY 08/23/18 [History Confirmed 01/08/20 Last Taken 09/26/18] hydrocortisone 2.5 % topical cream 1 applic TOPICAL QDAY PRN g 08/30/18 [History Confirmed 01/08/20 Last Taken 09/25/18] budesonide 0.5 mg NEB Q12 09/27/18 [History Confirmed 01/08/20 Last Taken Unknown] epinephrine 0.15 mg IM PRN PRN 09/27/18 [History Confirmed 01/08/20 Last Taken Unknown] albuterol sulfate 2.5 mg IH Q4-6HP PRN #30 ml 03/27/19 [Rx Confirmed 01/08/20 Last Taken Unknown] tamsulosin 0.4 mg capsule 0.4 mg PO QDAY #30 cap 06/20/19 [Rx Confirmed 01/08/20 Last Taken Unknown] hydrocodone 5 mg-acetaminophen 325 mg tablet 1 tab PO QHS PRN #30 tab 11/25/19 [Rx Confirmed 01/08/20 Last Taken Unknown] tiotropium bromide 2.5 mcg/actuation mist for inhalation 2 puff INHALATION QDAY 11/25/19 [History Confirmed 01/08/20 Last Taken Unknown] tramadol 50 mg tablet 100 mg PO TID #180 tab 11/25/19 [Rx Confirmed 01/08/20 Last Taken Unknown] guaifenesin [Mucinex] 600 mg PO BID 01/08/20 [History Confirmed 01/08/20 Last Taken Unknown] melatonin 3 mg PO HS PRN 01/08/20 [History Confirmed 01/08/20 Last Taken Unknown] aspirin 81 mg PO QDAY #30 tab 01/10/20 [Rx Last Taken Unknown] levofloxacin 750 mg PO DAILY #5 tab 01/10/20 [Rx Last Taken Unknown] prednisone 40 mg PO QDAY #10 tab 01/10/20 [Rx Last Taken Unknown] verapamil 80 mg PO BID #60 tab 01/10/20 [Rx Last Taken Unknown] COURSE Hospital Course Hospital course: , Discharge diagnosis: , Time Spent with Patient Time attestation: Total time spent providing and/or coordinating discharge services: EXAM Constitutional Vitals: Temp Pulse Resp BP Pulse Ox 98.9 F 104 H 16 137/89 96 01/10/20 08:01 01/10/20 07:10 01/10/20 10:01 01/10/20 10:01 01/10/20 10:01 Alert oriented Nonlabored breathing Discharge Data Data Completed and Pending Labs on day of discharge: Labs from last 24 hours 01/10/20 01/10/20 01/10/20 04:56 04:56 04:56 WBC 12.6 H RBC 3.89 L Hgb 11.9 L Hct 34.8 L MCV 89.5 MCH 30.6 MCHC 34.2 RDW 13.0 Plt Count 211 MPV 11.0 H Neut % (Auto) 92.2 H Lymph % (Auto) 3.8 L Spink % (Auto) 4.0 Eos % (Auto) 0 Baso % (Auto) 0 Lymph # (Auto) 0.48 L [place] # (Auto) 0.50 Eos # (Auto) 0 Baso # (Auto) 0 Absolute Neutrophils 11.66 H Sodium 135 Potassium 3.7 Chloride 100 Carbon Dioxide 23 Anion Gap 12.0 BUN 13 Creatinine 0.7 GFR Calculation 96 Glucose 136 H Uric Acid 2.1 L Calcium 8.8 Phosphorus 2.3 L Magnesium 2.1 Total Bilirubin 0.2 Direct Bilirubin < 0.2 GGT 23 AST 40 H ALT 22 Alkaline Phosphatase 60 Lactate Dehydrogenase 252 H Total Protein 6.2 Albumin 3.8 Globulin 2.4 Albumin/Globulin Ratio 1.6 Triglycerides 41 Procalcitonin 0.06 Preliminary micro results at discharge 01/08/20 01:03 Blood Culture - Preliminary Blood 01/08/20 01:00 Blood Culture - Preliminary Blood Discharge Plan Patient/Caregiver Discharge Instructions Activity: increase activity as tolerated Diet: Regular Diet Activity Restrictions/Additional Instructions: Continue steroids for additional 5 days Antibiotic for 5 days Continue verapamil for heart rate control Follow-up primary care physician 5 to 7 days Return to ER if worsening shortness of breath fever chills Maintain COVID-19 precautions until test results available. Call hospital for results of test in 48 hours Prescriptions: New verapamil 80 mg Tablet 80 mg PO BID Qty: 60 RF: 0 levofloxacin [levofloxacin] 750 MG tablet 750 mg PO DAILY Qty: 5 RF: 0 prednisone 20 mg tablet 40 mg PO QDAY Qty: 10 RF: 0 aspirin 81 mg tablet,chewable 81 mg PO QDAY Qty: 30 RF: 0 Continued tamsulosin 0.4 mg capsule 0.4 mg PO QDAY Qty: 30 RF: 6 ibuprofen 200 mg tablet 400 mg PO TID RF: 0 [id number] 1 tab PO QDAY RF: 0 cetirizine [Zyrtec] 10 mg tablet 10 mg PO QDAY RF: 0 formoterol fumarate [Perforomist] 20 mcg/2 mL solution for nebulization 2 ml INHALATION Q12H RF: 0 hydrocortisone 2.5 % cream 1 applic TOPICAL QDAY PRN (Reason: eczema) RF: 0 Spiriva Respimat 2.5 mcg/actuation mist 2 puff INHALATION QDAY RF: 0 hydrocodone-acetaminophen 5-325 mg tablet 1 tab PO QHS PRN (Reason: pain) Qty: 30 RF: 0 tramadol 50 mg tablet 100 mg PO TID Qty: 180 RF: 0 albuterol sulfate 1 PUFF inhaler 2 puff INH PRN PRN (Reason: asthma) RF: 0 cholecalciferol (vitamin D3) 4,000 UNIT capsule 400 unit PO DAILY RF: 0 epinephrine 0.15 MG/0.3 ML auto-injector 0.15 mg IM PRN PRN (Reason: Anaphylaxis) RF: 0 budesonide 0.5 MG/2 ML suspension for nebulization 0.5 mg NEB Q12 RF: 0 albuterol sulfate 2.5 MG/3 ML solution for nebulization 2.5 mg IH Q4-6HP PRN (Reason: Wheezing) Qty: 30 RF: 0 melatonin 3 mg Tablet 3 mg PO HS PRN (Reason: Sleep) RF: 0 guaifenesin [Mucinex] 600 mg Tablet Extended Release 12hr 600 mg PO BID RF: 0 Follow Up Plan Follow up with: Amalia Bucio PA-C [Primary Care Provider] - Patient Disposition: Home, Self-Care Prognosis: Undetermined Rehab Potential: Fair I certify that the patient requires SNF services: No Overall status at discharge: patient is progressing back to baseline Discharge Orders: Discharge Order (Routine); Ordered 01/10/20 Ordered By: Mak RODRIGUEZ VTE Deep Vein Thrombosis/Pulmonary Embolism Present on Admission: No
== END 2020-01-10 12:30 | disposition home or self-care (01) | DRG 189 ==
LOC: ED 00:21 → ICU 00:21 → OBSVTOIN 04:56
PROVIDERS: ADMIT Internal Medicine; ATTEND Internal Medicine

== ENCOUNTER 2020-09-09 10:26 | Inpatient (IN) ==
[2020-09-09] MEDS ORDERED: IOPAMIDOL 100 ML BOTTLE IV ONE (10:27)
[2020-09-09] MEDS ORDERED: 0.9 % SODIUM CHLORIDE 1,000 ML IV ONE (11:00)
[2020-09-09] MEDS ORDERED: morphine 2 MG/ML VIAL IV PRN (11:00)
[2020-09-09] MEDS ORDERED: ONDANSETRON 4 MG/2 ML VIAL IV ONE (11:00)
[2020-09-09 11:28] LABS: POC Creatinine 0.7 mg/dL (0.6-1.2)
[2020-09-09 12:07] LABS: Basophils # (Auto) 0.06 K/mcL (0.00-0.20); Basophils % (Auto) 0.9 % (0.0-2.0); Eosinophils # (Auto) 0.04 K/mcL (0.00-0.70); Eosinophils % (Auto) 0.6 % (0.0-7.0); Hematocrit 33.1 % (41.0-55.0); Hemoglobin 11.2 g/dL (13.5-16.5); Lymphocytes # (Auto) 0.91 K/mcL (1.50-4.80); Lymphocytes % (Auto) 13.1 % (15.0-49.0); Mean Cell Volume 92.2 fL (80.0-100.0); Mean Corpuscular HGB Conc 33.8 g/dL (31.0-36.0); Mean Platelet Volume 10.4 fL (7.4-10.4); Monocytes # (Auto) 0.64 K/mcL (0.10-0.90); Monocytes % (Auto) 9.2 % (1.0-12.0); Neutrophils % (Auto) 76.2 % (38.0-78.0); Platelet Count 177 K/mcL (140-440); RBC 3.59 M/mcL (4.50-5.90); Red Cell Distribution Width 12.1 % (11.5-14.5); WBC 6.9 K/mcL (4.5-11.0)
[2020-09-09 12:27] LABS: ALT/SGPT 11 U/L (<40); AST/SGOT 26 U/L (<40); Albumin 4.1 gm/dL (3.2-5.2); Albumin/Globulin Ratio 1.3 (1.0-2.3); Alkaline Phosphatase 83 U/L (39-117); Bilirubin,Total 0.2 mg/dL (0.1-1.0); Blood Urea Nitrogen 12 mg/dL (8-23); Calcium 9.3 mg/dL (8.6-10.4); Carbon Dioxide 29 mmol/L (22-30); Chloride 95 mmol/L (96-108); Globulin 3.1 gm/dL (2.2-3.7); Glomerular Filtration Rate 96; Glucose 107 mg/dL (70-105)
--- NOTE | 2020-09-09 13:38 | Emergency Department Note ---
Abdominal Pain HPI General Chief Complaint: Abdominal Pain Stated Complaint: abdominal pain Time Seen by Provider: 09/09/20 10:48 Source: patient, family, RN notes reviewed and old records reviewed Mode of arrival: EMS Limitations: no limitations History of Present Illness HPI Narrative: Narrative: 69-year-old male complaining of abdominal pain in the upper abdomen for the last 2 days increasing in the. He denies any fevers or chills he has nausea but no vomiting he has had no hematemesis or coffee-ground emesis. He has had constipation and has been using a laxative and had normal bowel movement yesterday. He denies any bright red blood per rectum black tarry stools or diarrhea. He denies any urinary complaints although he has had decreased urine output and urinary retention in the past. He has no surgical history on his abdomen and his last meal was last night. MD Complaint: abdominal pain Onset (ago): day(s) (2) Consistency: constant Location: diffuse Severity: moderate Quality: cramping Radiation: back Migration to: no migration Improves with: nothing Worsens with: eating Associated symptoms: Reports nausea and constipation; Denies vomiting, diarrhea, fever, chills, dysuria, hematemesis, hematochezia, melena, hematuria, anorexia and syncope Treatments prior to arrival: NSAIDs and antacids Related Data Home Medications Medication Instructions Recorded Confirmed cetirizine 10 mg tablet 10 mg PO QDAY tab 09/01/17 09/09/20 ibuprofen 200 mg tablet 400 mg PO TID tab 09/01/17 09/09/20 gmzmpmapvxpv-ynynjduq-rdvqmy 1 tab PO QDAY 09/01/17 09/09/20 [Centrum Silver] formoterol fumarate 20 mcg/2 mL 2 ml INHALATION Q12H 12/01/17 09/09/20 solution for nebulization albuterol sulfate 2 puff INH PRN PRN 08/23/18 09/09/20 hydrocortisone 2.5 % topical cream 1 applic TOPICAL QDAY PRN g 08/30/18 09/09/20 budesonide 0.5 mg NEB Q12 09/27/18 09/09/20 epinephrine 0.15 mg IM PRN PRN 09/27/18 09/09/20 tiotropium bromide 2.5 2 puff INHALATION QDAY 11/25/19 09/09/20 mcg/actuation mist for inhalation cholecalciferol (vitamin D3) 10 10 mcg PO QDAY 06/13/20 09/09/20 mcg (400 unit) capsule docusate sodium 100 mg capsule 100 mg PO BID cap 06/13/20 09/09/20 guaifenesin 600 mg tablet, 600 mg PO TID tab 06/13/20 09/09/20 extended release 12 hr sodium chloride 0.9 % nasal spray 1 spray INTRANASAL BID PRN ml 06/13/20 09/09/20 aerosol tamsulosin 0.4 mg capsule 0.4 mg PO QDAY cap 07/06/20 09/09/20 diphenhydramine HCl [Sleep Aid 25 mg PO QHS 09/09/20 09/09/20 (diphenhydramine)] psyllium husk [Metamucil] 1 PO DAILY 09/09/20 sennosides [senna] 8.6 mg PO BID PRN 09/09/20 09/09/20 Previous Rx's Medication Instructions Recorded albuterol sulfate 2.5 mg IH Q4-6HP PRN #30 ml 03/27/19 aspirin 81 mg PO QDAY #30 tab 01/10/20 dutasteride 0.5 mg capsule 0.5 mg PO QDAY #30 cap 06/05/20 tramadol 50 mg tablet 100 mg PO TID #180 tab 07/06/20 Allergies Allergy/AdvReac Type Severity Reaction Status Date / Time venom-honey bee Allergy Severe Anaphylaxis Verified 09/09/20 10:39 Megestrol Allergy Mild Rash Verified 09/09/20 10:39 trazodone AdvReac Intermediate suicidal Verified 09/09/20 15:53 ideation, difficulty urinating, dry mouth ipratropium [From Combivent] AdvReac Mild Bladder Verified 09/09/20 10:39 problem oxymetazoline AdvReac Mild Shakiness Verified 09/09/20 10:39 [From Afrin (oxymetazoline)] Review of Systems ROS ROS Narrative: Narrative: All systems ED: reviewed and negative except as stated. [facility] Narrative Patient History Narrative: Narrative: Medical/Surgical/Family History All Active Problems (Updated 09/09/20 @ 16:08 by Yanely Barber MD) Acute ischemic enteritis (Acute) Abdominal pain (Acute) Anemia (Acute) Medicare annual wellness visit, subsequent (Acute) Constipation (Acute) Congestion of nasal sinus (Acute) Abdominal pain (Acute) History of urinary retention (Acute) Urinary retention (Acute) Elevated PSA (Acute) Tachycardia (Acute) Rendon catheter present (Acute) Urinary obstruction (Acute) Bladder outlet obstruction (Acute) Adverse reaction to drug (Acute) Pedal edema (Acute) Acute exacerbation of chronic obstructive airways disease (Acute) Adenocarcinoma of prostate (Acute) History of tobacco use (Chronic) Raynauds disease (Chronic ~1991) Chronic pain (Chronic ~1991) Emphysema of lung (Chronic ~2015) COPD (chronic obstructive pulmonary disease) (Chronic ~2015) Joint pain (Chronic ~1991) Muscle pain (Chronic ~1991) Medical History Chronic pain (~1991) 07-06-20- stable on tramadol 100mg po tid Constipation COPD (chronic obstructive pulmonary disease) (~2015) 07/06/20- Pt is managed by Dr de paz. pt to continue budesonide, perforomist, spiriva and albuterol Emphysema of lung (~2015) 07/06/20- Pt is managed by Dr de paz. pt to continue budesonide, perforomist, spiriva and albuterol History of tobacco use Joint pain (~1991) Medicare annual wellness visit, subsequent Muscle pain (~1991) Raynauds disease (~1991) Tachycardia Surgical History H/O colonoscopy 2014 H/O neck surgery x3 H/O shoulder surgery x2 History of resection of rib History of surgery Hip bone used for neck surgery History of thoracic surgery Family History Brother Arthritis Prostate cancer Sister Arthritis Mother Arthritis Grandmother Arthritis Maternal Stroke Paternal Social History Smoking Status: Former smoker Alcohol Intake Frequency: 0-2 drinks per day Substance Use: does not use Exam Narrative Narrative: Narrative: General Limitations: no limitations General appearance: Present alert and in no apparent distress Head Head: Present atraumatic, normocephalic and normal inspection Eye Eye: Present normal appearance, PERRL and EOMI; Absent scleral icterus and conjunctival injection ENT ENT: Present normal exam, normal oropharynx and mucous membranes moist Neck Neck: Present normal inspection, full ROM and trachea midline; Absent lymphadenopathy and thyromegaly Chest Chest: Present normal inspection and symmetric chest wall rise; Absent tenderness Respiratory Respiratory: Present normal lung sounds bilaterally; Absent respiratory distress, wheezes, stridor, accessory muscle use and prolonged expiratory phase Cardiovascular Cardiovascular: Present regular rate and normal rhythm; Absent systolic murmur and diastolic murmur Adbominal Abdominal: Present soft, tenderness, hypoactive bowel sounds and Welsh's sign; Absent distention, guarding, rebound, rigidity, organomegaly, trauma, tenderness at McBurney's Point, ascites, mass, pulsatile mass, hernia and scar Extremities Extremities: Present normal inspection, full ROM and normal capillary refill; Absent tenderness, pedal edema, pretibial edema and calf tenderness Back Back: Present normal inspection and full ROM; Absent tenderness, CVA tenderness (R), CVA tenderness (L) and spinous process tenderness Neurological Neurological: Present alert and oriented X3 Psychiatric Psychiatric: Present normal affect and normal mood Skin Skin: Present warm (WNL) and dry Course Vital Signs Vital signs: Vital Signs Temperature 98.1 F 09/09/20 10:34 Pulse Rate 103 H 09/09/20 10:34 Respiratory Rate 17 09/09/20 10:34 Blood Pressure 147/114 09/09/20 10:34 Pulse Oximetry (%) 96 09/09/20 10:34 Temperature 93.2 F L 09/09/20 14:35 Pulse Rate 88 09/09/20 17:00 Respiratory Rate 16 09/09/20 15:46 Blood Pressure 124/78 09/09/20 17:00 Pulse Oximetry (%) 98 09/09/20 17:00 [facility] Narrative Medical decision making narrative: Narrative: Patient received IV fluids labs are reviewed CT scan reviewed Dr. Barber of general surgery. Dr. Barber graciously agreed to evaluate patient in the emergency department. Differential Diagnosis Differential Diagnosis: Cholecystitis, small bowel obstruction, large bowel obstruction, ischemic b Medical Records Medical records reviewed: Yes I reviewed the patient's medical records. Lab Data Lab results reviewed: Yes I reviewed the patient's lab results. Result diagrams: 09/09/20 10:40 09/09/20 10:40 Labs: Lab Results 09/09/20 09/09/20 09/09/20 Range/Units 10:40 10:40 10:40 WBC 6.9 (4.5-11.0) K/mcL RBC 3.59 L (4.50-5.90) M/mcL Hgb 11.2 L (13.5-16.5) g/dL Hct 33.1 L (41.0-55.0) % MCV 92.2 (80.0-100.0) fL MCH 31.2 (26.0-34.0) pg MCHC 33.8 (31.0-36.0) g/dL RDW 12.1 (11.5-14.5) % Plt Count 177 (140-440) K/mcL MPV 10.4 (7.4-10.4) fL Neut % (Auto) 76.2 (38.0-78.0) % Lymph % (Auto) 13.1 L (15.0-49.0) % Toole % (Auto) 9.2 (1.0-12.0) % Eos % (Auto) 0.6 (0.0-7.0) % Baso % (Auto) 0.9 (0.0-2.0) % Lymph # (Auto) 0.91 L (1.50-4.80) K/mcL Toole # (Auto) 0.64 (0.10-0.90) K/mcL Eos # (Auto) 0.04 (0.00-0.70) K/mcL Baso # (Auto) 0.06 (0.00-0.20) K/mcL Absolute Neutrophils 5.29 (1.80-8.00) K/mcL Sodium 133 (133-145) mmol/L Potassium 4.1 (3.3-5.1) mmol/L Chloride 95 L (96-108) mmol/L Carbon Dioxide 29 (22-30) mmol/L Anion Gap 9.0 (8.0-16.0) BUN 12 (8-23) mg/dL Creatinine 0.7 (0.7-1.2) mg/dL POC Creatinine 0.7 (0.6-1.2) mg/dL GFR Calculation 96 Glucose 107 H (70-105) mg/dL Calcium 9.3 (8.6-10.4) mg/dL Total Bilirubin 0.2 (0.1-1.0) mg/dL AST 26 (<40) U/L ALT 11 (<40) U/L Alkaline Phosphatase 83 (39-117) U/L Troponin T < 0.01 (<0.03) ng/mL Total Protein 7.2 (5.9-8.4) gm/dL Albumin 4.1 (3.2-5.2) gm/dL Globulin 3.1 (2.2-3.7) gm/dL Albumin/Globulin Ratio 1.3 (1.0-2.3) Lipase 40 (7-60) U/L ED POC Tests ED POC Tests: DARION - SARS Antigen Negative Radiology Data Radiology results reviewed: Yes I reviewed the patient's radiology results. Radiology results narrative: Abdominal CT IMPRESSION: Abnormal segment of small bowel in the left mid abdomen and upper pelvis. This could be due to inflammatory bowel disease or more likely ischemic bowel. Stable 4 cm abdominal aorta aneurysm Severe emphysema Dr. Chang was called with the report Interpreted and Authenticated by: Kenney Carrasquillo 09/09/20 Pulse Oximetry Data Pulse Ox %: 96 Interpretation: 96% on 2 L nasal cannula patient's baseline. Discharge Plan Patient/Caregiver Discharge Instructions Pt seen by PHILOSOPHY SPECIALIST/PA only: No Clinical Impression: Abdominal pain Qualifiers: Abdominal location: upper abdomen, unspecified Qualified Code(s): R10.10 - Upper abdominal pain, unspecified Patient Disposition: Xfer As Inpt ([facility]) Condition: Fair Follow up with: Amalia Bucio PA-C [Primary Care Provider] - Prescriptions: No Action dutasteride 0.5 mg capsule 0.5 mg PO QDAY Qty: 30 RF: 11 ibuprofen 200 mg tablet 400 mg PO TID RF: 0 pjvksvdeljct-lhogfwni-lbuosc 1 tab PO QDAY RF: 0 cetirizine [Zyrtec] 10 mg tablet 10 mg PO QDAY RF: 0 formoterol fumarate [Perforomist] 20 mcg/2 mL solution for nebulization 2 ml INHALATION Q12H RF: 0 hydrocortisone 2.5 % cream 1 applic TOPICAL QDAY PRN (Reason: eczema) RF: 0 Spiriva Respimat 2.5 mcg/actuation mist 2 puff INHALATION QDAY RF: 0 docusate sodium [Colace] 100 mg capsule 100 mg PO BID RF: 0 tramadol 50 mg tablet 100 mg PO TID Qty: 180 RF: 0 sodium chloride 0.9 % aerosol,spray 1 spray intranasal BID PRN (Reason: Nasal Congestion) RF: 0 cholecalciferol (vitamin D3) 10 mcg (400 unit) capsule 10 mcg PO QDAY RF: 0 albuterol sulfate 1 PUFF inhaler 2 puff INH PRN PRN (Reason: asthma) RF: 0 epinephrine 0.15 MG/0.3 ML auto-injector 0.15 mg IM PRN PRN (Reason: Anaphylaxis) RF: 0 budesonide 0.5 MG/2 ML suspension for nebulization 0.5 mg NEB Q12 RF: 0 albuterol sulfate 2.5 MG/3 ML solution for nebulization 2.5 mg IH Q4-6HP PRN (Reason: Wheezing) Qty: 30 RF: 0 aspirin 81 mg tablet,chewable 81 mg PO QDAY Qty: 30 RF: 0 guaifenesin [Mucinex] 600 mg tablet extended release 12hr 600 mg PO TID RF: 0 sennosides [senna] 8.6 mg Tablet 8.6 mg PO BID PRN (Reason: Constipation) RF: 0 diphenhydramine HCl [Sleep Aid (diphenhydramine)] 25 mg Capsule 25 mg PO QHS RF: 0 Metamucil 3.4 gram/5.4 gram Powder 1 PO DAILY RF: 0 tamsulosin 0.4 mg capsule 0.4 mg PO QDAY RF: 0
--- NOTE | 2020-09-09 14:26 | Cat Scan Report ---
History: Abdominal pain TECHNIQUE: Following injection of intravenous nonionic contrast the patient was scanned during the late arterial early portal venous phase from the diaphragm through the symphysis pubis. Sagittal and coronal reformats were created. Delayed excretory phase images were obtained of the upper abdomen. The radiation exposure was limited using dose reduction technology. FINDINGS: Severe emphysema is present in both lower lobes. There is no infiltrate or pleural effusion. The heart size is relatively small. The liver and spleen are normal in size and homogeneous. The gallbladder and bile ducts are normal. There is no mass or inflammation in the pancreas. However, there is borderline dilatation of the pancreatic duct which measures 2 to 3 mm in diameter. There is a chronic stable finding. The adrenals are normal. There is a simple cyst in the upper pole the left kidney which measures 2.2 cm. The kidneys are otherwise normal and there is no kidney stone, mass or hydronephrosis. Severe atherosclerotic disease is present in the abdomen and pelvis. There is a fusiform aneurysm in the distal abdominal aorta which measures 3.1 x 4.0 cm. The celiac and superior mesenteric arteries are patent and contain several eccentric plaques. 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 There is an abnormal segment of mid small bowel which may be distal jejunum. It is mildly dilated and contains an air-fluid level. The wall is mildly thickened and there is distortion of the mucosal folds. This abnormal segment is roughly 20 cm in length and the wall ranges from 3 to 5 mm in thickness. This is a new finding since 06/06/20. Proximal to this the upper jejunum is nondistended. Distal ileum is normal. Normal amount stool is present in the ascending colon. Descending colon and sigmoid are largely decompressed. No diverticula are seen. There is no abscess, adenopathy or free fluid within the abdomen or pelvis. Urinary bladder is well distended and has a smooth contour. Patient had prior prostate surgery. Bone windows show no fracture and no evidence of metastasis. IMPRESSION: Abnormal segment of small bowel in the left mid abdomen and upper pelvis. This could be due to inflammatory bowel disease or more likely ischemic bowel. Stable 4 cm abdominal aorta aneurysm Severe emphysema Dr. Chang was called with the report Interpreted and Authenticated by: Kenney Carrasquillo 09/09/20
[2020-09-09] MEDS ORDERED: HYDROmorphone 0.5 MG/0.5 ML SYRINGE IV ONE (14:31)
[2020-09-09] MEDS ORDERED: ONDANSETRON 4 MG/2 ML VIAL IV PRN (15:44)
--- NOTE | 2020-09-09 16:05 | General Surg History&Physical ---
HPI History of Present Illness Patient information: Note initiated : 09/09/20 at 3:55 pm Service Date, if different from initiated Date: [] Patient: Dimitry May a 69 y/o M admitted on for abdominal pain. Chief Complaint: [] Chief complaint: Chronic abdominal pain with exacerbation History of present illness: Mr. May is a 69 year old M admitted from the ER for evaluation of chronic abdominal pain with exacerbation. The patient states that he has had mid abdominal pain for few months. He has had intermittent episodes of nausea but no vomiting. He noted increasing severe pain across his upper abdomen which is much worse over the past 2 weeks. It has become much worse over the past week. CT of the abdomen suggests inflammation and thickening of the distal jejunum with some edema in the tissues surrounding the jejunum. The colon is unremarkable as is the ileum. Patient has had some problems with constipation but he has not had rectal bleeding. He has been extremely thin and has not had any recent weight loss. His present weight is 97 pounds. He has slowly lost weight since 1999. He has anorexia. Review of Systems All systems: reviewed and no additional remarkable complaints except as stated Constitutional Constitutional: Present anorexia, fatigue, lethargy and weight loss Cardiovascular Cardiovascular: Absent chest pain with activity, claudication, dyspnea on exertion, leg edema, lightheadedness and palpatations Respiratory Respiratory: Absent cough, dyspnea on exertion and wheezing Gastrointestinal Gastrointestinal: Present abdominal pain, change in stool character, cramping, early satiety, heartburn and nausea; Absent dyspepsia, dysphagia, hematemesis, melena and vomiting Genitourinary Genitourinary: urinary frequency and urinary urgency Musculoskeletal Musculoskeletal: Present muscle weakness and myalgias Integumentary Integumentary: Absent pruritus and rash Neurological Neurological: Present dizziness; Absent syncope and vertigo Endocrine Endocrine: Absent fatigue and palpitations Hematologic/Lymphatic Hematologic/Lymphatic: Absent easy bleeding, easy bruising and lymphadenopathy PFSH PFSH All Active Problems (Updated 09/09/20 @ 16:08 by Yanely Barber MD) Acute ischemic enteritis (Acute) Abdominal pain (Acute) Anemia (Acute) Medicare annual wellness visit, subsequent (Acute) Constipation (Acute) Congestion of nasal sinus (Acute) Abdominal pain (Acute) History of urinary retention (Acute) Urinary retention (Acute) Elevated PSA (Acute) Tachycardia (Acute) Rendon catheter present (Acute) Urinary obstruction (Acute) Bladder outlet obstruction (Acute) Adverse reaction to drug (Acute) Pedal edema (Acute) Acute exacerbation of chronic obstructive airways disease (Acute) Adenocarcinoma of prostate (Acute) History of tobacco use (Chronic) Raynauds disease (Chronic ~1991) Chronic pain (Chronic ~1991) Emphysema of lung (Chronic ~2015) COPD (chronic obstructive pulmonary disease) (Chronic ~2015) Joint pain (Chronic ~1991) Muscle pain (Chronic ~1991) Medical History Chronic pain (~1991) 07-06-20- stable on tramadol 100mg po tid Constipation COPD (chronic obstructive pulmonary disease) (~2015) 07/06/20- Pt is managed by Dr de paz. pt to continue budesonide, perforomist, spiriva and albuterol Emphysema of lung (~2015) 07/06/20- Pt is managed by Dr de paz. pt to continue budesonide, perforomist, spiriva and albuterol History of tobacco use Joint pain (~1991) Medicare annual wellness visit, subsequent Muscle pain (~1991) Raynauds disease (~1991) Tachycardia Surgical History H/O colonoscopy 2014 H/O neck surgery x3 H/O shoulder surgery x2 History of resection of rib History of surgery Hip bone used for neck surgery History of thoracic surgery Family History Brother Arthritis Prostate cancer Sister Arthritis Mother Arthritis Grandmother Arthritis Maternal Stroke Paternal Social History (Updated 07/06/20 @ 13:04 by Amalia Bucio PA-C) marital status: occupational status: disabled smoking status: Former smoker alcohol intake frequency: 0-2 drinks per day substance use type: does not use MEDS/ALLERGIES Home Medications and Allergies Home Medications Medication Instructions Recorded Confirmed Type cetirizine 10 mg tablet 10 mg PO QDAY tab 09/01/17 09/09/20 History ibuprofen 200 mg tablet 400 mg PO TID tab 09/01/17 09/09/20 History eqdrxsseyzya-pddtziay-jibmvt 1 tab PO QDAY 09/01/17 09/09/20 History [Centrum Silver] formoterol fumarate 20 mcg/2 mL 2 ml INHALATION Q12H 12/01/17 09/09/20 History solution for nebulization albuterol sulfate 2 puff INH PRN PRN 08/23/18 09/09/20 History hydrocortisone 2.5 % topical cream 1 applic TOPICAL QDAY PRN g 08/30/18 09/09/20 History budesonide 0.5 mg NEB Q12 09/27/18 09/09/20 History epinephrine 0.15 mg IM PRN PRN 09/27/18 09/09/20 History albuterol sulfate 2.5 mg IH Q4-6HP PRN #30 ml 03/27/19 09/09/20 Rx tiotropium bromide 2.5 2 puff INHALATION QDAY 11/25/19 09/09/20 History mcg/actuation mist for inhalation aspirin 81 mg PO QDAY #30 tab 01/10/20 09/09/20 Rx cholecalciferol (vitamin D3) 10 10 mcg PO QDAY 06/13/20 09/09/20 History mcg (400 unit) capsule docusate sodium 100 mg capsule 100 mg PO BID cap 06/13/20 09/09/20 History guaifenesin 600 mg tablet, 600 mg PO TID tab 06/13/20 09/09/20 History extended release 12 hr sodium chloride 0.9 % nasal spray 1 spray INTRANASAL BID PRN ml 06/13/20 09/09/20 History aerosol tamsulosin 0.4 mg capsule 0.4 mg PO QNOON cap 07/06/20 09/09/20 History tramadol 50 mg tablet 100 mg PO TID #180 tab 07/06/20 09/09/20 Rx dutasteride 0.5 mg PO QHS 09/09/20 09/09/20 History psyllium husk [Metamucil] 1 tsp PO DAILY 09/09/20 09/10/20 History sennosides [senna] 8.6 mg PO BID PRN 09/09/20 09/09/20 History melatonin 10 mg PO HS 09/10/20 09/10/20 History Allergies Allergy/AdvReac Type Severity Reaction Status Date / Time venom-honey bee Allergy Severe Anaphylaxis Verified 09/09/20 10:39 Megestrol Allergy Mild Rash Verified 09/09/20 10:39 trazodone AdvReac Intermediate suicidal Verified 09/09/20 15:53 ideation, difficulty urinating, dry mouth ipratropium [From Combivent] AdvReac Mild Bladder Verified 09/09/20 10:39 problem oxymetazoline AdvReac Mild Shakiness Verified 09/09/20 10:39 [From Afrin (oxymetazoline)] Physical Examination Vital Signs Vital signs: Temp Pulse Resp BP Pulse Ox 93.2 F L 80 16 113/73 100 09/09/20 14:35 09/09/20 15:46 09/09/20 15:46 09/09/20 15:46 09/09/20 15:46 General physical appearance General physical exam: moderate distress, moderate pain, cachectic and chronically ill Eyes Eye exam: PERRL and normal ocular movement ENT ENT exam: normal mucosa and poor assisted (Edentulous) Head Head exam IM: Present atraumatic, normal inspection and normocephalic Neck Neck exam: no masses, no bruits, trachea midline, no lymphadenopathy and no venous distension Cardiovascular Cardiovascular exam IM: Present normal rate and rhythm, RRR, +S1, +S2 and tachycardia; Absent JVD Respiratory Respiratory exam: normal expansion, normal respiratory effort and clear to auscultation Abdomen Abdomen: Present tender and bowel sounds (present); Absent organomegaly and guarding Integumentary Integumentary: Present no rash, no growths and no abnormal pigmentation Neurologic Neurologic: Present normal coordination and normal sensation Musculoskeletal Musculoskeletal: Present normal gait, normal posture and other (Patient is very weak and emaciated) Psychiatric Psychiatric: Present oriented to time, oriented to person, oriented to place, speech is normal and memory intact Results Labs Result diagrams: 09/11/20 05:39 09/10/20 06:11 Labs: Abnormal lab results 09/09/20 09/09/20 Range/Units 10:40 10:40 RBC 3.59 L (4.50-5.90) M/mcL Hgb 11.2 L (13.5-16.5) g/dL Hct 33.1 L (41.0-55.0) % Lymph % (Auto) 13.1 L (15.0-49.0) % Lymph # (Auto) 0.91 L (1.50-4.80) K/mcL Chloride 95 L (96-108) mmol/L Glucose 107 H (70-105) mg/dL Diabetes panel 09/09/20 Range/Units 10:40 Sodium 133 (133-145) mmol/L Potassium 4.1 (3.3-5.1) mmol/L Chloride 95 L (96-108) mmol/L Carbon Dioxide 29 (22-30) mmol/L BUN 12 (8-23) mg/dL Creatinine 0.7 (0.7-1.2) mg/dL Glucose 107 H (70-105) mg/dL Calcium 9.3 (8.6-10.4) mg/dL AST 26 (<40) U/L ALT 11 (<40) U/L Alkaline Phosphatase 83 (39-117) U/L Total Protein 7.2 (5.9-8.4) gm/dL Albumin 4.1 (3.2-5.2) gm/dL Calcium panel 09/09/20 Range/Units 10:40 Calcium 9.3 (8.6-10.4) mg/dL Albumin 4.1 (3.2-5.2) gm/dL Pituitary panel 09/09/20 Range/Units 10:40 Sodium 133 (133-145) mmol/L Potassium 4.1 (3.3-5.1) mmol/L Chloride 95 L (96-108) mmol/L Carbon Dioxide 29 (22-30) mmol/L BUN 12 (8-23) mg/dL Creatinine 0.7 (0.7-1.2) mg/dL Glucose 107 H (70-105) mg/dL Calcium 9.3 (8.6-10.4) mg/dL Adrenal panel 09/09/20 Range/Units 10:40 Sodium 133 (133-145) mmol/L Potassium 4.1 (3.3-5.1) mmol/L Chloride 95 L (96-108) mmol/L Carbon Dioxide 29 (22-30) mmol/L BUN 12 (8-23) mg/dL Creatinine 0.7 (0.7-1.2) mg/dL Glucose 107 H (70-105) mg/dL Calcium 9.3 (8.6-10.4) mg/dL Total Bilirubin 0.2 (0.1-1.0) mg/dL AST 26 (<40) U/L ALT 11 (<40) U/L Alkaline Phosphatase 83 (39-117) U/L Total Protein 7.2 (5.9-8.4) gm/dL Albumin 4.1 (3.2-5.2) gm/dL All other labs normal. A/P Assessment and plan (1) Acute ischemic enteritis: Status: Acute (2) Anemia: Status: Acute (3) Constipation: Status: Acute Narrative A/P Narrative: Levaquin and Flagyl IV Dicyclomine 20 mg 3 times daily Hydration with IV fluids Follow-up CBC and sed rate Follow-up CT if patient does not improve Time Spent With Patient Time: Total time spent is greater than 50% in coordination of care (as documented) at patient's floor/unit and/or counseling patient:
[2020-09-09] MEDS ORDERED: ALBUTEROL SULFATE 200 PUFF INHALER INH PRN (16:11)
[2020-09-09] MEDS: metroNIDAZOLE 500 MG/100 ML BAG IV SCH (17:30)
[2020-09-09] MEDS: LEVOFLOXACIN 500 MG/100 ML BAG IV SCH (17:31)
[2020-09-09] MEDS: HYDROmorphone 0.5 MG/0.5 ML SYRINGE IV PRN ×2 (17:31→21:20)
[2020-09-09] MEDS ORDERED: SODIUM CHLORIDE NASAL 1 SPRAY BOTTLE NAS PRN (19:15)
[2020-09-09] MEDS ORDERED: IBUPROFEN 200 MG TABLET PO PRN (19:16)
[2020-09-09] MEDS: BUDESONIDE 0.5 MG/2 ML AMPUL.NEB NEB SCH (19:51)
[2020-09-09] MEDS: ALBUTEROL SULFATE 2.5 MG/3 ML NEBULIZER IH PRN (19:51)
[2020-09-09] MEDS: 0.45 % SODIUM CHLORIDE 1,000 ML IV SCH (19:53)
[2020-09-09] MEDS: DICYCLOMINE 20 MG TABLET PO SCH ×2 (20:05→22:25)
[2020-09-09] MEDS: guaiFENesin 600 MG TAB.SR.12H PO SCH (20:57)
[2020-09-09] MEDS: diphenhydrAMINE 25 MG CAPSULE PO SCH ×2 (20:57→21:09)
[2020-09-09] MEDS: traMADol 50 MG TABLET PO SCH (20:57)
[2020-09-09] MEDS: FORMOTEROL FUMARATE 20 MCG/2 ML INH SCH (20:58)
[2020-09-09] MEDS: 0.9 % SODIUM CHLORIDE 10 ML SYRINGE IV SCH (22:44)
[2020-09-10] MEDS: metroNIDAZOLE 500 MG/100 ML BAG IV SCH ×5 (01:50→23:57)
[2020-09-10] MEDS: 0.45 % SODIUM CHLORIDE 1,000 ML IV SCH ×4 (01:58→16:09)
[2020-09-10] MEDS: HYDROmorphone 0.5 MG/0.5 ML SYRINGE IV PRN (02:07)
[2020-09-10] MEDS: ALBUTEROL SULFATE 2.5 MG/3 ML NEBULIZER IH PRN ×3 (02:10→17:54)
[2020-09-10] MEDS: 0.9 % SODIUM CHLORIDE 10 ML SYRINGE IV SCH ×3 (06:38→20:29)
[2020-09-10 07:45] LABS: Basophils # (Auto) 0.05 K/mcL (0.00-0.20); Basophils % (Auto) 0.9 % (0.0-2.0); Eosinophils # (Auto) 0.03 K/mcL (0.00-0.70); Eosinophils % (Auto) 0.5 % (0.0-7.0); Hematocrit 31.4 % (41.0-55.0); Hemoglobin 10.5 g/dL (13.5-16.5); Lymphocytes # (Auto) 0.98 K/mcL (1.50-4.80); Lymphocytes % (Auto) 17.5 % (15.0-49.0); Mean Cell Volume 93.5 fL (80.0-100.0); Mean Corpuscular HGB Conc 33.4 g/dL (31.0-36.0); Mean Platelet Volume 10.4 fL (7.4-10.4); Monocytes # (Auto) 0.61 K/mcL (0.10-0.90); Monocytes % (Auto) 10.9 % (1.0-12.0); Neutrophils % (Auto) 70.2 % (38.0-78.0); Platelet Count 180 K/mcL (140-440); RBC 3.36 M/mcL (4.50-5.90); Red Cell Distribution Width 12.2 % (11.5-14.5); WBC 5.6 K/mcL (4.5-11.0)
[2020-09-10 08:41] LABS: ALT/SGPT 11 U/L (<40); AST/SGOT 22 U/L (<40); Albumin 3.5 gm/dL (3.2-5.2); Albumin/Globulin Ratio 1.4 (1.0-2.3); Alkaline Phosphatase 68 U/L (39-117); Bilirubin,Direct < 0.2 mg/dL (0-0.3); Bilirubin,Total 0.2 mg/dL (0.1-1.0); Blood Urea Nitrogen 13 mg/dL (8-23); Carbon Dioxide 24 mmol/L (22-30); Chloride 98 mmol/L (96-108); Globulin 2.5 gm/dL (2.2-3.7); Glomerular Filtration Rate 91; Glucose 75 mg/dL (70-105); Lactate Dehydrogenase 167 U/L (135-225); Phosphorous 2.9 mg/dL (2.5-4.5); Triglycerides 38 mg/dL (<150)
[2020-09-10] MEDS: CETIRIZINE 10 MG TABLET PO SCH (08:47)
[2020-09-10] MEDS: ASPIRIN 81 MG TAB.CHEW PO SCH (08:48)
[2020-09-10] MEDS: DICYCLOMINE 20 MG TABLET PO SCH ×4 (08:48→20:02)
[2020-09-10] MEDS: guaiFENesin 600 MG TAB.SR.12H PO SCH ×3 (08:49→20:02)
[2020-09-10] MEDS: traMADol 50 MG TABLET PO SCH ×3 (08:49→20:03)
[2020-09-10] MEDS: ENOXAPARIN 40 MG/0.4 ML SYRINGE SQ SCH (08:52)
[2020-09-10] MEDS: LEVOFLOXACIN 500 MG/100 ML BAG IV SCH (08:55)
[2020-09-10] MEDS: FORMOTEROL FUMARATE 20 MCG/2 ML INH SCH ×2 (08:57→20:44)
[2020-09-10] MEDS ORDERED: TAMSULOSIN 0.4 MG CAPSULE PO SCH (09:00)
[2020-09-10] MEDS ORDERED: DUTASTERIDE 0.5 MG CAPSULE PO SCH ×2 (09:00→18:30)
[2020-09-10] MEDS: BUDESONIDE 0.5 MG/2 ML AMPUL.NEB NEB SCH ×2 (09:12→20:48)
--- NOTE | 2020-09-10 09:46 | EKG ---
[facility] Test Date: 2020-09-09 Pat Name: Dimitry May Department: ED Room: Gender: Male Medical Receptionist: SHAN : 1950 Requested By: Alfredito Chang Order Number: [id number] Reading MD: Ludwig Landeros M.D. Measurements Intervals [place] Rate: 83 P: 84 AR: 144 QRS: 65 QRSD: 81 T: 74 QT: 344 QTc: 405 Interpretive Statements Sinus arrhythmia Low voltage, extremity and precordial leads Baseline wander in lead(s) V2 NO PRIOR TRACING FOR COMPARISON BORDERLINE TRACING Electronically Signed On 09-10-2020 9:46:32 PDT by Ludwig Landeros M.D. /store/[email or web address]/[id number]
[2020-09-10] MEDS: TAMSULOSIN 0.4 MG CAPSULE PO SCH (12:48)
[2020-09-10] MEDS ORDERED: MELATONIN 3 MG TABLET PO SCH (13:00)
--- NOTE | 2020-09-10 13:11 | General Surgery Progress Note ---
SUBJECTIVE Subjective Patient information: Note initiated : 09/10/20 at 1:06 pm Service Date, if different from initiated Date: [] Patient: Dimitry May 69 y/o M admitted on 09/09/20 for abdominal pain. Chief Complaint: [] Principal diagnosis: Small bowel enteritis Interval history: Patient states that he feels much better. He has much less pain. He is passing gas and had a bowel movement. He has been afebrile and his white blood count remains normal at 5.6. Sedimentation rate is 14 and lactate is 1.2. Constitutional Vitals: Vital Signs Temp Pulse Resp BP Pulse Ox 98.1 F 87 22 102/64 98 09/10/20 08:00 09/10/20 09:27 09/10/20 09:27 09/10/20 08:00 09/10/20 09:29 Period Temp Pulse Resp BP Sys/Carlos Pulse Ox Last 24 Hr 93.2 F-98.9 F 73-100 14-22 93-133/64-109 96-100 Intake and Output 09/09/20 09/10/20 09/10/20 21:59 05:59 13:59 Intake Total 1200 1200 160 Output Total 300 300 300 Balance 900 900 -140 Weight 9 lb 4.8 oz 97 lb 4.8 oz Patient Weight 09/11/20 05:59 Weight 97 lb 4.8 oz Intake & Output: Intake & Output 09/09/20 09/10/20 09/10/20 21:59 05:59 13:59 Intake Total 1200 1200 160 Output Total 300 300 300 Balance 900 900 -140 Weight 9 lb 4.8 oz 97 lb 4.8 oz Intake: IV 1200 1100 100 Sodium Chloride 0.45% 1,000 ml 1000 @ 125 mls/hr IV .Q8H HA Rx#: [id number] Sodium Chloride 0.9% 1,000 ml @ 1000 Wide Open IV BOLUS ONE Rx#: [id number] Oral 100 60 Output: Void Amount 300 300 300 Other: Nourishment/Supplement name ice chips total Urine Appearance Cloudy Cloudy Urine Color Dark Yellow Dark Yellow Dark Yellow Urine Odor Strong Eye Eye exam: Present EOMI Pupils: Present normal accommodation and PERRL ENT ENT exam: Present mucous membranes moist Additional comments: Edentulous Neck Neck exam: Present full ROM and normal inspection; Absent lymphadenopathy and thyromegaly Respiratory Respiratory exam: Present normal respiratory exam and CTAB; Absent rales, rhonchi and wheezes Cardiovascular Cardiovascular exam: Present normal rate and rhythm, RRR, +S1 and +S2; Absent JVD GI/Abdominal GI/Abdominal exam: Present normal bowel sounds, soft and tenderness (He has minimal tenderness to palpation; no guarding noted) Extremities Exam Extremities exam: Present full ROM and normal inspection; Absent pedal edema and tenderness Neurological Exam Neurological exam: Present alert, oriented X3 and reflexes normal; Absent motor sensory deficit Psychiatric Psychiatric exam: Present normal affect and normal mood A/P Assessment and plan (1) Acute ischemic enteritis: Status: Acute (2) Anemia: Status: Acute (3) COPD (chronic obstructive pulmonary disease): Status: Chronic Comment: 07/06/20- Pt is managed by Dr de paz. pt to continue budesonide, perforomist, spiriva and albuterol Qualifiers: COPD type: emphysema Emphysema type: unspecified Qualified Code(s): J43.9 - Emphysema, unspecified Narrative A/P Narrative: Patient is clinically stable and much improved. There is no cl inical findings to suggest major ischemia. We will recheck white blood count lactate and sed rate in the morning Started on clear liquid diet Time Spent With Patient Time: Total time spent is greater than 50% in coordination of care (as documented) at patient's floor/unit and/or counseling patient:
[2020-09-11] MEDS: 0.45 % SODIUM CHLORIDE 1,000 ML IV SCH ×2 (02:14→07:07)
[2020-09-11] MEDS: metroNIDAZOLE 500 MG/100 ML BAG IV SCH ×2 (05:07→12:30)
[2020-09-11 06:56] LABS: Basophils # (Auto) 0.05 K/mcL (0.00-0.20); Basophils % (Auto) 1.1 % (0.0-2.0); Eosinophils % (Auto) 2.1 % (0.0-7.0); Hemoglobin 10.3 g/dL (13.5-16.5); Lymphocytes % (Auto) 19.3 % (15.0-49.0); Mean Cell Volume 90.6 fL (80.0-100.0); Mean Corpuscular HGB Conc 33.2 g/dL (31.0-36.0); Mean Platelet Volume 10.4 fL (7.4-10.4); Monocytes # (Auto) 0.59 K/mcL (0.10-0.90); Monocytes % (Auto) 12.6 % (1.0-12.0); Neutrophils % (Auto) 64.9 % (38.0-78.0); Platelet Count 170 K/mcL (140-440); RBC 3.42 M/mcL (4.50-5.90); Red Cell Distribution Width 11.9 % (11.5-14.5); WBC 4.7 K/mcL (4.5-11.0)
[2020-09-11] MEDS: 0.9 % SODIUM CHLORIDE 10 ML SYRINGE IV SCH ×2 (07:02→12:44)
[2020-09-11 08:09] LABS: Erythrocyte Sedimentation Rate 11 mm/hr (0-15)
[2020-09-11] MEDS: guaiFENesin 600 MG TAB.SR.12H PO SCH (08:13)
[2020-09-11] MEDS: CETIRIZINE 10 MG TABLET PO SCH (08:13)
[2020-09-11] MEDS: traMADol 50 MG TABLET PO SCH (08:14)
[2020-09-11] MEDS: DICYCLOMINE 20 MG TABLET PO SCH ×2 (08:14→12:30)
[2020-09-11] MEDS: LEVOFLOXACIN 500 MG/100 ML BAG IV SCH (08:15)
[2020-09-11] MEDS: ASPIRIN 81 MG TAB.CHEW PO SCH (08:17)
[2020-09-11] MEDS: ENOXAPARIN 40 MG/0.4 ML SYRINGE SQ SCH (08:17)
[2020-09-11] MEDS: ALBUTEROL SULFATE 2.5 MG/3 ML NEBULIZER IH PRN (09:00)
[2020-09-11] MEDS: BUDESONIDE 0.5 MG/2 ML AMPUL.NEB NEB SCH (09:00)
[2020-09-11] MEDS: FORMOTEROL FUMARATE 20 MCG/2 ML INH SCH (09:53)
[2020-09-11] MEDS: TAMSULOSIN 0.4 MG CAPSULE PO SCH (12:30)
--- NOTE | 2020-09-11 12:53 | Discharge Summary ---
Discharge Provider Provider Patient information: Note initiated : 09/11/20 at 12:45 pm Service Date, if different from initiated Date: [] Patient: Dimitry May 69 y/o M admitted on 09/09/20 for abdominal pain. Chief Complaint: [] Date of admission: 09/09/20 18:48 Discharge date: 09/11/20 Primary care physician: Amalia Bucio PA-C Admitting clinician: Yanely Barber Attending physician on admission: Yanely Barber Consults: 09/09/20 Consult to Physician [CONS] Stat Comment: Consulting Provider: Yanely Barber Reason For Exam: Physician to Consult Attending physician on discharge: Yanely Barber COURSE Hospital Course Hospital course: 69-year-old male admitted with exacerbation of chronic abdominal pain. The patient gives a history of having mid abdominal pain for 3months. He had episodes of nausea but no vomiting. The pain became progressively worse over the week prior to admission. CT of the abdomen and pelvis showed suggested inflammation and thickening of the distal jejunum with some edema in the tissue surrounding the jejunum. Patient is extremely thin and weighs only 97 pounds. He is lost weight slowly since 1999. He has intermittent anorexia. Patient was admitted and started on hydration. He was given IV Levaquin and Flagyl and started on dicyclomine for intestinal spasms. His white count and sed rate and lactic acid remained normal. He had regular bowel movements without evidence of bleeding. He is tolerating full liquid diet now and is asymptomatic. He is discharged with follow-up in the office in 1 week Discharge diagnosis: Acute segmental enteritis Secondary discharge diagnosis: Chronic anemia Constipation Unexplained weight loss Reason for admission: Recurrent abdominal pain with anorexia and weight loss Procedures: None Pertinent studies/significant findings: CT of abdomen and pelvis with IV contrast Time Spent with Patient Time attestation: Total time spent providing and/or coordinating discharge services: Physical Examination Vital Signs Vital signs: Temp Pulse Resp BP Pulse Ox 98.0 F 92 H 20 120/75 97 09/11/20 12:24 09/11/20 12:24 09/11/20 12:24 09/11/20 12:24 09/11/20 12:24 General physical appearance General physical exam: moderate distress, moderate pain, cachectic and chronically ill Eyes Eye exam: PERRL and normal ocular movement ENT ENT exam: normal mucosa and poor long term (Edentulous) Head Head exam IM: Present atraumatic, normal inspection and normocephalic Neck Neck exam: no masses, no bruits, trachea midline, no lymphadenopathy and no venous distension Cardiovascular Cardiovascular exam IM: Present normal rate and rhythm, RRR, +S1, +S2 and tachycardia; Absent JVD Respiratory Respiratory exam: normal expansion, normal respiratory effort and clear to auscultation Abdomen Abdomen: Present non tender and bowel sounds (present); Absent organomegaly and guarding Integumentary Integumentary: Present no rash, no growths and no abnormal pigmentation Neurologic Neurologic: Present normal coordination and normal sensation Musculoskeletal Musculoskeletal: Present normal gait, normal posture and other (Patient is very weak and emaciated) Psychiatric Psychiatric: Present oriented to time, oriented to person, oriented to place, speech is normal and memory intact Discharge Plan Patient/Caregiver Discharge Instructions Activity: increase activity as tolerated Diet: Regular Diet Instructions: Dicyclomine (By mouth), Metronidazole (By mouth), Levofloxacin (By mouth), Colitis (ED) Activity Restrictions/Additional Instructions: Resume home diet as tolerated Increase activity as tolerated Follow up with Yanely Barber Follow up with Amalia Bucio Take all medication as directed Your medications have been electronically transmitted to [facility] pharmacy. Take your photo ID and insurance cards to shredder picker your medications Return to ER for fever, chills, uncontrolled pain, inability to urinate or have a bowel movement , nausea and/or vomiting, swelling, redness, signs of infection, shortness of breath, chest pain, return of symptoms, or other acute symptom This discharge packet is provided to you to help keep you informed about your care. We want to ensure you get everything you need when you go home. You will also be receiving a call from us in a few days to follow up with you and see how you are doing since your discharge. This gives us a chance to listen to any concerns you maybe experiencing since you were discharged or any additional needs you may have, as well as providing us feedback on your care experience. We strive to always provide excellent care and thank you for your feedback and for choosing [facility]. Prescriptions: New dicyclomine 20 mg tablet 20 mg PO TID Qty: 60 RF: 1 levofloxacin 750 mg tablet 750 mg PO DAILY Qty: 10 RF: 0 metronidazole 500 mg tablet 500 mg PO TID Qty: 30 RF: 0 Continued ibuprofen 200 mg tablet 400 mg PO TID RF: 0 kmnptnhykktd-wanajtud-raytzo 1 tab PO QDAY RF: 0 cetirizine [Zyrtec] 10 mg tablet 10 mg PO QDAY RF: 0 formoterol fumarate [Perforomist] 20 mcg/2 mL solution for nebulization 2 ml INHALATION Q12H RF: 0 hydrocortisone 2.5 % cream 1 applic TOPICAL QDAY PRN (Reason: eczema) RF: 0 Spiriva Respimat 2.5 mcg/actuation mist 2 puff INHALATION QDAY RF: 0 docusate sodium [Colace] 100 mg capsule 100 mg PO BID RF: 0 tramadol 50 mg tablet 100 mg PO TID Qty: 180 RF: 0 sodium chloride 0.9 % aerosol,spray 1 spray intranasal BID PRN (Reason: Nasal Congestion) RF: 0 cholecalciferol (vitamin D3) 10 mcg (400 unit) capsule 10 mcg PO QDAY RF: 0 albuterol sulfate 1 PUFF inhaler 2 puff INH PRN PRN (Reason: asthma) RF: 0 epinephrine 0.15 MG/0.3 ML auto-injector 0.15 mg IM PRN PRN (Reason: Anaphylaxis) RF: 0 budesonide 0.5 MG/2 ML suspension for nebulization 0.5 mg NEB Q12 RF: 0 albuterol sulfate 2.5 MG/3 ML solution for nebulization 2.5 mg IH Q4-6HP PRN (Reason: Wheezing) Qty: 30 RF: 0 aspirin 81 mg tablet,chewable 81 mg PO QDAY Qty: 30 RF: 0 guaifenesin [Mucinex] 600 mg tablet extended release 12hr 600 mg PO TID RF: 0 sennosides [senna] 8.6 mg Tablet 8.6 mg PO BID PRN (Reason: Constipation) RF: 0 Metamucil 3.4 gram/5.4 gram Powder 1 tsp PO DAILY RF: 0 dutasteride 0.5 mg Capsule 0.5 mg PO QHS RF: 0 melatonin 10 mg Tablet 10 mg PO HS RF: 0 tamsulosin 0.4 mg capsule 0.4 mg PO QNOON RF: 0 Follow Up Plan Follow up with: Amalia Bucio PA-C [Primary Care Provider] - 09/14/20 1:45 pm Yanely Barber MD [Physician] - 09/18/20 9:45 am () Patient Disposition: Home, Self-Care Prognosis: Good Rehab Potential: Good I certify that the patient requires SNF services: No Overall status at discharge: patient is progressing back to baseline Discharge Orders: Discharge Order (Routine); Ordered 09/11/20 Ordered By: Yanely Barber Pending Pending Pending: Resuscitation Status Full Code Diet Clear Liquid Diet Start ThuSep 10 1416 Albuterol Sulfate (Albuterol Sulfate 2.5 Mg/3 Ml Nebulizer) 2.5 mg IH Q4-6HP PRN PRN Reason: Wheezing Last Admin: 09/11/20 09:00 Dose: 2.5 mg Documented by: [email or web address] Admin: 09/10/20 17:54 Dose: 2.5 mg Documented by: Admin: 09/10/20 09:14 Dose: 2.5 mg Documented by: Admin: 09/10/20 02:10 Dose: 2.5 mg Documented by: [email or web address] Admin: 09/09/20 19:51 Dose: 2.5 mg Documented by: IJEOMA Aspirin (Aspirin 81 Mg Tab.Chew) 81 mg PO QDAY [facility] Last Admin: 09/11/20 08:17 Dose: Not Given Documented by: Admin: 09/10/20 08:48 Dose: Not Given Documented by: NATHAN Budesonide (Budesonide 0.5 Mg/2 Ml Ampul.Neb) 0.5 mg NEB Q12 [facility] Last Admin: 09/11/20 09:00 Dose: 0.5 mg Documented by: [email or web address] Admin: 09/10/20 20:48 Dose: 0.5 mg Documented by: Admin: 09/10/20 09:12 Dose: 0.5 mg Documented by: Admin: 09/09/20 19:51 Dose: 0.5 mg Documented by: IJEOMA Cetirizine HCl (Cetirizine 10 Mg Tablet) 10 mg PO QDAY [facility] Last Admin: 09/11/20 08:13 Dose: 10 mg Documented by: Admin: 09/10/20 08:47 Dose: 10 mg Documented by: NATHAN Dicyclomine HCl (Dicyclomine 20 Mg Tablet) 20 mg PO QID [facility] Last Admin: 09/11/20 12:30 Dose: 20 mg Documented by: Admin: 09/11/20 08:14 Dose: 20 mg Documented by: Admin: 09/10/20 20:02 Dose: 20 mg Documented by: Admin: 09/10/20 16:05 Dose: 20 mg Documented by: Admin: 09/10/20 12:48 Dose: 20 mg Documented by: Admin: 09/10/20 08:48 Dose: 20 mg Documented by: Admin: 09/09/20 22:25 Dose: 20 mg Documented by: Admin: 09/09/20 20:05 Dose: 20 mg Documented by: NORMA Dutasteride (Dutasteride 0.5 Mg Capsule) 0.5 mg PO DAILY@1830 [facility] Last Admin: 09/10/20 17:50 Dose: 0.5 mg Documented by: NATHNA Enoxaparin Sodium (Enoxaparin 40 Mg/0.4 Ml Syringe) 40 mg SQ DAILY [facility] Last Admin: 09/11/20 08:17 Dose: 40 mg Documented by: Admin: 09/10/20 08:52 Dose: 40 mg Documented by: NATHAN Guaifenesin (Guaifenesin 600 Mg Tab.Sr.12h) 600 mg PO TID [facility] Last Admin: 09/11/20 08:13 Dose: 600 mg Documented by: Admin: 09/10/20 20:02 Dose: 600 mg Documented by: Admin: 09/10/20 16:06 Dose: 600 mg Documented by: Admin: 09/10/20 08:49 Dose: 600 mg Documented by: Admin: 09/09/20 20:57 Dose: 600 mg Documented by: NORMA Hydromorphone HCl (Hydromorphone 0.5 Mg/0.5 Ml Syringe) 0.5 mg IV Q2HP PRN; Protocol PRN Reason: Per Pain Protocol Last Admin: 09/10/20 02:07 Dose: 0.5 mg Documented by: Admin: 09/09/20 21:20 Dose: 0.5 mg Documented by: Admin: 09/09/20 17:31 Dose: 0.5 mg Documented by: FLOWER Sodium Chloride (Sodium Chloride 0.45%) 1,000 mls @ 125 mls/hr IV .Q8H HA Last Infusion: 09/11/20 10:15 Dose: 0 mls/hr Documented by: Admin: 09/11/20 07:07 Dose: Not Given Documented by: Admin: 09/11/20 02:14 Dose: 125 mls/hr Documented by: [email or web address] Infusion: 09/11/20 00:09 Dose: 125 mls/hr Documented by: [email or web address] Admin: 09/10/20 16:09 Dose: 125 mls/hr Documented by: Infusion: 09/10/20 16:06 Dose: 0 mls/hr Documented by: Admin: 09/10/20 06:56 Dose: Not Given Documented by: Admin: 09/10/20 04:52 Dose: 125 mls/hr Documented by: Infusion: 09/10/20 04:52 Dose: 0 mls/hr Documented by: Admin: 09/10/20 01:58 Dose: Not Given Documented by: Admin: 09/09/20 19:53 Dose: 125 mls/hr Documented by: NORMA Levofloxacin (Levaquin) 500 mg in 100 mls @ 100 mls/hr IV Q24H HA; Protocol Last Infusion: 09/11/20 09:15 Dose: 0 mls/hr Documented by: Admin: 09/11/20 08:15 Dose: 100 mls/hr Documented by: Infusion: 09/10/20 09:55 Dose: 0 mls/hr Documented by: Admin: 09/10/20 08:55 Dose: 100 mls/hr Documented by: Infusion: 09/09/20 18:31 Dose: 0 mls/hr Documented by: [email or web address] Admin: 09/09/20 17:31 Dose: 100 mls/hr Documented by: FLOWER Metronidazole (Flagyl) 500 mg in 100 mls @ 100 mls/hr IV Q6H HA; Protocol Last Admin: 09/11/20 12:30 Dose: 100 mls/hr Documented by: Infusion: 09/11/20 06:07 Dose: 0 mls/hr Documented by: Admin: 09/11/20 05:07 Dose: 100 mls/hr Documented by: Infusion: 09/11/20 00:58 Dose: 0 mls/hr Documented by: Admin: 09/10/20 23:57 Dose: 100 mls/hr Documented by: Infusion: 09/10/20 18:51 Dose: 0 mls/hr Documented by: Admin: 09/10/20 17:51 Dose: 100 mls/hr Documented by: Infusion: 09/10/20 13:48 Dose: 0 mls/hr Documented by: Admin: 09/10/20 12:48 Dose: 100 mls/hr Documented by: Infusion: 09/10/20 06:38 Dose: 0 mls/hr Documented by: Admin: 09/10/20 05:38 Dose: 100 mls/hr Documented by: Infusion: 09/10/20 02:50 Dose: 0 mls/hr Documented by: Admin: 09/10/20 01:50 Dose: 100 mls/hr Documented by: Infusion: 09/09/20 18:30 Dose: 0 mls/hr Documented by: Admin: 09/09/20 17:30 Dose: 100 mls/hr Documented by: FLOWER Melatonin (Melatonin 3 Mg Tablet) 9 mg PO [facility] Last Admin: 09/10/20 20:02 Dose: 9 mg Documented by: NORMA Morphine Sulfate (Morphine 2 Mg/Ml Vial) 2 mg IV Q5MIN PRN; Protocol PRN Reason: Chest Pain Last Admin: 09/09/20 11:14 Dose: 2 mg Documented by: FLOWER Formoterol Fumarate [Perforomist] 20 Mcg /2 Ml Christelle 2 dose INH Q12H [facility] Last Admin: 09/11/20 09:53 Dose: 2 dose Documented by: [email or web address] Admin: 09/10/20 20:44 Dose: 2 dose Documented by: Admin: 09/10/20 08:57 Dose: Not Given Documented by: Admin: 09/09/20 20:58 Dose: Not Given Documented by: NORMA Tiotropium [place] [ Spiriva Respimat] 2. 5 Mcg/Actuation 2 dose INH QDAY [facility] Last Admin: 09/11/20 08:16 Dose: 2 dose Documented by: Admin: 09/10/20 08:56 Dose: 2 dose Documented by: NATHAN Sodium Chloride (0.9 % Sodium Chloride 10 Ml Syringe) 10 ml IV Q8 [facility] Last Admin: 09/11/20 12:44 Dose: Not Given Documented by: Admin: 09/11/20 07:02 Dose: Not Given Documented by: Admin: 09/10/20 20:29 Dose: Not Given Documented by: Admin: 09/10/20 12:54 Dose: Not Given Documented by: Admin: 09/10/20 06:38 Dose: Not Given Documented by: Admin: 09/09/20 22:44 Dose: Not Given Documented by: NORMA Tamsulosin HCl (Tamsulosin 0.4 Mg Capsule) 0.4 mg PO DAILY@1200 [facility] Last Admin: 09/11/20 12:30 Dose: 0.4 mg Documented by: Admin: 09/10/20 12:48 Dose: 0.4 mg Documented by: NATHAN Tramadol HCl (Tramadol 50 Mg Tablet) 100 mg PO TID [facility]; Protocol Last Admin: 09/11/20 08:14 Dose: 100 mg Documented by: Admin: 09/10/20 20:03 Dose: 100 mg Documented by: Admin: 09/10/20 16:05 Dose: 100 mg Documented by: Admin: 09/10/20 08:49 Dose: 100 mg Documented by: Admin: 09/09/20 20:57 Dose: 100 mg Documented by: NORMA Shift Summary 09/11/20 00:04 Shift Summary by Marybeth Carlson&OX3 knew month/year. Up with SBA help with IV pole, has extended oxygen tubing to make it to bathroom. Possibly discharged today, patient has home medications in bin. IV 20G left AC running 1/2 NS at 125ml/hr Turns self in bed Voids per toilet, takes a few minutes, also has urinal if needed Last BM 09/09 prior to admit Likes ice water/black coffee/newspaper 09/09 16:11 DARION SARS negative 09/09 18:48 Admitted to [facility] [place] status with diagnosis: acute enteritis. Under Dr. Barber's care Recent Hx: ED visit summary-triage report A 69 YO male presented to ED, on 09/09 at 10:34, via EMS, with chief complaint: Abdominal Pain. Description of symptoms: mild abd pain ongoing but worse over past few days. ED admit vitals: Temp 98.1, HR 103, RR 17, BP 147/114, SPO2 96% on 2L O2 via NC FYI: Lives at home with Elissa-spouse, wears chronic 2L via NC Dimitry May Male : 1950 MedRec# [id number] 09/10/20 17:04 - Shift Summary by Monica Park RN Acct Num: [id number] : 1950 Patient Age: 69 Alert oriented x 4, calls appropriately. Up with SBA help with IV pole, has extended oxygen tubing to make it to bathroom. He was changed to a clear liquid diet. Did well with his diet with no c/o nausea. Remains on O2 at 2L via NC which is chronic for him. IV intact to Lt AC with 0.45 NS at 125. Remains on Tramadol TID routine which controls his pain. He hasnt required anything else for pain. Remains on Levaquin Q24hr and Flagyl Q6hr. He had redness to his sacrum on admit so he has a sacral dressing in place. He is able to reposition self in bed. Ambulates to toilet with SBA. Dr. Barber stated that if everything goes ok he may DC tomarrow. Initialized on 09/11/20 00:04 - END OF NOTE
== END 2020-09-11 14:10 | disposition home or self-care (01) | DRG 386 ==
LOC: ED 10:26 → MEDSUR 18:48
PROVIDERS: ADMIT Family Medicine Adult Medicine; ATTEND Family Medicine Adult Medicine